=== PATIENT | female | born 1930 | race Caucasian/White ===

== ENCOUNTER 2018-01-02 16:34 | Inpatient (IN) | payer MEDICARE, BC ==
[~2018-01-02] VITALS: Ht 162.6 cm; Wt 65.0 kg
[~2018-01-02 16:34] MED LIST: ADVA100A INH; ALBU17I INH; ASCO500T PO; CALTTAB2 PO; CHOL400D2 PO; ENAL5TAB98 PO; FISH1000 PO; LATA.005%O EACH EYE; MISCCAP32 PO; MULT1TAB84 PO; PRAV40TA PO; PRIL20CA9 PO; SENN1TAB PO; SENN1TAB11 PO; ZOLO50TA PO
[2018-01-02 16:59] VITALS: BP 157/89; PULSE 92; RESP 18; TEMP 98.4; O2SAT 95
[2018-01-02 17:19] LABS: AUTOMATED NEUTROPHIL # 14.8 TH/MM3 (1.8-7.7); BASOPHIL # 0.1 TH/MM3 (0-0.2); BASOPHIL % 0.5 % (0.0-2.0); EOSINOPHIL # 0.1 TH/MM3 (0-0.4); EOSINOPHIL % 0.6 % (0.0-4.0); HEMATOCRIT 31.9 % (35.0-46.0); HEMOGLOBIN 10.6 GM/DL (11.6-15.3); LYMPH % 5.6 % (9.0-44.0); LYMPHOCYTE # 0.9 TH/MM3 (1.0-4.8); MEAN CELL VOLUME 86.7 FL (80.0-100.0); MEAN CORPUSCULAR HEMOGLOBIN 28.8 PG (27.0-34.0); MEAN CORPUSCULAR HGB CONC 33.2 % (32.0-36.0); MEAN PLATELET VOLUME 6.4 FL (7.0-11.0); MONO % 4.1 % (0.0-8.0); MONOCYTE # 0.7 TH/MM3 (0-0.9); NEUT % 89.2 % (16.0-70.0); PLATELET COUNT 589 TH/MM3 (150-450); RED BLOOD COUNT 3.68 MIL/MM3 (4.00-5.30); RED CELL DISTRIBUTION WIDTH 13.8 % (11.6-17.2); WHITE BLOOD COUNT 16.6 TH/MM3 (4.0-11.0)
[2018-01-02 17:49] LABS: INTERNATIONAL NORMALIZED RATIO 1.1 RATIO; PROTHROMBIN TIME - PATIENT 11.4 SEC (9.8-11.6)
[2018-01-02] MEDS ORDERED: VENTAER INH (17:54)
[2018-01-02 18:08] LABS: ALKALINE PHOSPHATASE 80 U/L (45-117); ALT (GPT) 28 U/L (10-53); TOTAL BILIRUBIN ADULT 0.3 MG/DL (0.2-1.0); TOTAL PROTEIN 7.4 GM/DL (6.4-8.2); TROPONIN I LESS THAN 0.02 NG/ML (0.02-0.05)
[2018-01-02 18:11] LABS: ALBUMIN 3.2 GM/DL (3.4-5.0); AST (GOT) 35 U/L (15-37); BICARBONATE 23.6 MEQ/L (21.0-32.0); BLOOD UREA NITROGEN 12 MG/DL (7-18); CALCIUM 9.3 MG/DL (8.5-10.1); CHLORIDE 92 MEQ/L (98-107); CREATININE 0.72 MG/DL (0.50-1.00); GLOMERULAR FILTRATION RATE 76 ML/MIN (>89); GLUCOSE,RANDOM 100 MG/DL (74-106); MAGNESIUM 1.9 MG/DL (1.5-2.5); SODIUM (NA) 126 MEQ/L (136-145)
--- NOTE | 2018-01-02 18:13 | PD ---
HPI Chief Complaint: Fall Time Seen by Provider: 16:53 Travel History International Travel<30 days: No Contact w/Intl Traveler<30days: No Traveled to known affect area: No History of Present Illness HPI 87-year-old female that presents to the ED for evaluation of fall. Patient had a mechanical fall today where she landed on her right side. She landed on her right hip and right elbow. She complained of pain to these areas. Per patient report that was given patient apparently got herself back up and drove herself home. When she got home she realized that she could not move anymore on her right hip and cannot put any weight so she called the ambulance. She denies any prior injuries. She denies any back or neck pain. She states having some chest discomfort when I went into the room. Per ambulance this chest discomfort just started by going to the room as she did not complain of this before. She states that she was recently diagnosed with pneumonia has been treated for it. She denies any head injury loss of consciousness. She denies any blood thinners. No previous injuries or surgeries to her right hip. She states having some pain on her right elbow as well as a skin tear to her right elbow. Has allergies to acetaminophen, Keflex, morphine and OxyContin. Pain with any moment or touch of the right hip. Denies any numbness, tingling, weakness. No urinary or bowel movement issues. Per patient the pain is 8 out of 10. PFSH Past Medical History Arthritis: Yes Asthma: No Blood Disorders: No Anxiety: No Depression: Yes Heart Rhythm Problems: No Cancer: No Cardiovascular Problems: Yes High Cholesterol: Yes Chemotherapy: No Chest Pain: No COPD: Yes Cerebrovascular Accident: No Diabetes: No Diminished Hearing: No Endocrine: No Gastrointestinal Disorders: Yes GERD: Yes Glaucoma: Yes Genitourinary: No Headaches: No Hepatitis: No Hiatal Hernia: Yes Heparin Induced Thrombocytopen: No Hypertension: Yes Immune Disorder: No Implanted Vascular Access Dvce: Yes Kidney Stones: No Medical other: Yes (HX PE) Musculoskeletal: Yes Neurologic: No Psychiatric: Yes Reproductive: No Respiratory: Yes Migraines: No Myocardial Infarction: No Radiation Therapy: No Renal Failure: No Seizures: No Sleep Apnea: No Thyroid Disease: No Ulcer: No ?: Not Menopausal: Yes Past Surgical History AICD: No Appendectomy: Yes Arteriovenous Shunt: No Cardiac Surgery: No Cholecystectomy: No Ear Surgery: No Endocrine Surgery: No Eye Surgery: Yes (kathleen cataract surgery) Genitourinary Surgery: No Gynecologic Surgery: No Insulin Pump: No Joint Replacement: Yes (partial right shoulder replacement) Neurologic Surgery: No Oral Surgery: No Pacemaker: No Thoracic Surgery: Yes (left lower lobectomy) Other Surgery: Yes Social History Alcohol Use: No Tobacco Use: No Substance Use: No Allergies-Medications (Allergen,Severity, Reaction): Coded Allergies: cephalexin (Unverified Allergy, Severe, Rash, 05/05/17) morphine (Unverified Allergy, Severe, sees things , itching , 05/05/17) Reported Meds & Prescriptions Reported Meds & Active Scripts Active Reported Ventolin Hfa 18 GM Inh (Albuterol Sulfate) 90 Mcg/Act Aer 2 Puff INH Q4-6H PRN Ascorbic Acid 500 Mg Tab 500 Mg PO DAILY Vitamin D (Cholecalciferol) 400 Unit/Ml Drops 400 Units PO DAILY Senna Plus 8.6-50 mg (Sennosides-Docusate Sodium) 1 Tab Tab 2 Tab PO DAILY Vasotec (Enalapril Maleate) 5 Mg Tab 5 Mg PO DAILY Advair Diskus Inh (Fluticasone-Salmeterol Inh) 100-50 Mcg/Blist Aer 1 Puff INH BID Rinse mouth after use. Xalatan Opth Drops (Latanoprost) 0.005% Drops 1 Drop EACH EYE HS Fish Oil ([place]-3 Fatty Acids) 1,000 Mg Cap PO DAILY Pravachol (Pravastatin) 40 Mg Tab 40 Mg PO DAILY Zoloft (Sertraline HCl) 50 Mg Tab 50 Mg PO DAILY Review of Systems Except as stated in HPI: all other systems reviewed are Neg Physical Exam Narrative GENERAL: SKIN: Warm and dry. HEAD: Atraumatic. Normocephalic. EYES: Pupils equal and round. No scleral icterus. No injection or drainage. ENT: No nasal bleeding or discharge. Mucous membranes pink and moist. Tongue is midline. No uvula deviation. NECK: Trachea midline. No JVD. CARDIOVASCULAR: Regular rate and rhythm. No murmurs, S3, S4. RESPIRATORY: No accessory muscle use. Clear to auscultation. Breath sounds equal bilaterally. GASTROINTESTINAL: Abdomen soft, non-tender, nondistended. Hepatic and splenic margins not palpable. MUSCULOSKELETAL: Extremities without clubbing, cyanosis, or edema. No obvious deformities. Full range of motion of the upper and lower extremities bilaterally. 2+ pulses bilaterally. Pain with range of motion of the right hip as well as with touch in the right hip. No obvious lumbar, thoracic, cervical spine tenderness to palpation. She does have some reversible pain on the lower aspect of the pelvic area on the right side. Full range of motion of the right elbow but has some skin tears noted as well as bruising noted. Full range of motion of the elbow. . Sensation intact bilaterally. NEUROLOGICAL: Awake and alert. No obvious cranial nerve deficits. Motor grossly within normal limits. Five out of 5 muscle strength in the arms and legs. Normal speech. PSYCHIATRIC: Appropriate mood and affect; insight and judgment normal. Data Data Last Documented VS Vital Signs Date Time Temp Pulse Resp B/P (MAP) Pulse Ox O2 Delivery O2 Flow Rate FiO2 01/02/18 16:59 98.4 92 18 157/89 (111) 95 Room Air Orders Orders Electrocardiogram (01/02/18 16:50) Complete Blood Count With Diff (01/02/18 16:50) Comprehensive Metabolic Panel (01/02/18 16:50) Ckmb (Isoenzyme) Profile (01/02/18 16:50) Troponin I (01/02/18 16:50) Prothrombin Time / Inr (Pt) (01/02/18 16:50) Act Partial Throm Time (Ptt) (01/02/18 16:50) Lipase (01/02/18 16:50) Magnesium (Mg) (01/02/18 16:50) Chest, Single Ap (01/02/18 16:50) Iv Access Insert/Monitor (01/02/18 16:50) Ecg Monitoring (01/02/18 16:50) Hip, Uni(Ap&Lat) W Ap Pelvis (01/02/18 16:50) Ct Lumb Spine W/O Contrast (01/02/18 16:50) Elbow, Complete (4 Vws) (01/02/18 ) CKMB (01/02/18 17:07) CKMB% (01/02/18 17:07) Ct Pelvis W/O Iv Contrast (01/02/18 ) Ketorolac Inj (Toradol Inj) (01/02/18 19:15) Levofloxacin 500 Mg Premix Inj (Levaquin (01/02/18 19:15) Admit Order (Ed Use Only) (01/02/18 20:00) Labs Laboratory Tests Test 01/02/18 17:07 White Blood Count 16.6 TH/MM3 Red Blood Count 3.68 MIL/MM3 Hemoglobin 10.6 GM/DL Hematocrit 31.9 % Mean Corpuscular Volume 86.7 FL Mean Corpuscular Hemoglobin 28.8 PG Mean Corpuscular Hemoglobin Concent 33.2 % Red Cell Distribution Width 13.8 % Platelet Count 589 TH/MM3 Mean Platelet Volume 6.4 FL Neutrophils (%) (Auto) 89.2 % Lymphocytes (%) (Auto) 5.6 % Monocytes (%) (Auto) 4.1 % Eosinophils (%) (Auto) 0.6 % Basophils (%) (Auto) 0.5 % Neutrophils # (Auto) 14.8 TH/MM3 Lymphocytes # (Auto) 0.9 TH/MM3 Monocytes # (Auto) 0.7 TH/MM3 Eosinophils # (Auto) 0.1 TH/MM3 Basophils # (Auto) 0.1 TH/MM3 CBC Comment AUTO DIFF Differential Comment AUTO DIFF CONFIRMED Toxic Granulation 1+ Platelet Estimate HIGH Platelet Morphology Comment NORMAL Prothrombin Time 11.4 SEC Prothromb Time International Ratio 1.1 RATIO Activated Partial Thromboplast Time 30.3 SEC Blood Urea Nitrogen 12 MG/DL Creatinine 0.72 MG/DL Random Glucose 100 MG/DL Total Protein 7.4 GM/DL Albumin 3.2 GM/DL Calcium Level 9.3 MG/DL Magnesium Level 1.9 MG/DL Alkaline Phosphatase 80 U/L Aspartate Amino Transf (AST/SGOT) 35 U/L Alanine Aminotransferase (ALT/SGPT) 28 U/L Total Bilirubin 0.3 MG/DL Sodium Level 126 MEQ/L Potassium Level 4.4 MEQ/L Chloride Level 92 MEQ/L Carbon Dioxide Level 23.6 MEQ/L Anion Gap 10 MEQ/L Estimat Glomerular Filtration Rate 76 ML/MIN Total Creatine Kinase 162 U/L Creatine Kinase MB 3.4 NG/ML Troponin I LESS THAN 0.02 NG/ML Lipase 142 U/L MDM Medical Decision Making Medical Screen Exam Complete: Yes Emergency Medical Condition: Yes Medical Record Reviewed: Yes Interpretation(s) CBC & BMP Diagram 01/02/18 17:07 Total Protein 7.4, Albumin 3.2 L, Calcium Level 9.3, Magnesium Level 1.9, Alkaline Phosphatase 80, Aspartate Amino Transf (AST/SGOT) 35, Alanine Aminotransferase (ALT/SGPT) 28, Total Bilirubin 0.3 [address] Lumbar Spine CT 01/02/180 Signed Impressions: Service Date/Time: Tuesday, January 02, 2018 18:16 - CONCLUSION: The lumbar spine is intact. Scoliosis and severe degenerative changes are present. There is a nondisplaced acute fracture of the left side of the sacrum. Ousmane Vaughn MD Hip and Pelvis X-Ray 01/02/18 1650 Signed Impressions: Service Date/Time: Tuesday, January 02, 2018 17:56 - CONCLUSION: Nondisplaced right pubic bone fracture. Intact right hip. Ousmane Vaughn MD Chest X-Ray 01/02/18 1650 Signed Impressions: Service Date/Time: Tuesday, January 02, 2018 17:59 - CONCLUSION: Patchy bilateral airspace consolidation. No perceptible acute bony abnormality. Ousmane Vaughn MD Pelvis CT 01/02/18 0000 Signed Impressions: Service Date/Time: Tuesday, January 02, 2018 18:40 - CONCLUSION: Minimally displaced fractures of the right superior and inferior pubic rami. The superior pubic ramus fracture is close to the pubic symphysis but not convincingly through it. There is also a nondisplaced fracture of the left side of the sacrum. Ousmane Vaughn MD Elbow X-Ray 01/02/18 0000 Signed Impressions: Service Date/Time: Tuesday, January 02, 2018 18:04 - CONCLUSION: Intact right elbow. Ousmane Vaughn MD Differential Diagnosis Fracture versus sprain versus strain versus bruise versus contusion versus chest pain versus ACS versus fall Narrative Course 87-year-old female that presents to the ED for evaluation of fall. Patient was properly examined and was found to have signs and symptoms concerning for possible fractures. Imaging and labs ordered. Imaging and labs showed pubic rami and sacrum fractures. Pneumonia as well with leukocytosis. Patient lives alone and not a safe discharge. Spoke with Dr Herrera who agrees patient is non surgical but will need walker and possibly physical therapy. Discussed with patient and family and recommend admission for further eval and treatment. patient agrees. Discussed with Dr Roberts who agrees to admission. Diagnosis Primary Impression: Pubic ramus fracture Qualified Codes: S32.591A - Other specified fracture of right pubis, initial encounter for closed fracture Additional Impression: PNA (pneumonia) Qualified Codes: J18.1 - Lobar pneumonia, unspecified organism Admitting Information Admitting Physician Requests: Admit Boris Wynn Jan 02, 2018 18:13
--- NOTE | 2018-01-02 18:25 | RADRPT ---
EXAM DATE/TIME: 01/02/2018 17:59 [facility] COMPARISON: No previous studies available for comparison. INDICATIONS : Patient complains of bilateral rib pain status post fall. MEDICAL HISTORY : None. SURGICAL HISTORY : None. ENCOUNTER: Initial ACUITY: 1 day PAIN SCORE: 4/10 LOCATION: chest FINDINGS: Patchy nonspecific airspace opacities are seen in both lungs, especially left mid lung and base. No p leural effusion demonstrated. No pneumothorax seen. Heart size within normal limits. No acute fracture demonstrated. There are congenital or old traumatic deformities of the right first and second ribs. Patient has had previous right shoulder arthroplasty as well. CONCLUSION: Patchy bilateral airspace consolidation. No perceptible acute bony abnormality. Ousmane Vaughn MD on January 02, 2018 at 18:22 Board Certified Radiologist. This report was verified electronically.
--- NOTE | 2018-01-02 18:35 | RADRPT ---
EXAM DATE/TIME: 01/02/2018 17:56 [facility] COMPARISON: No previous studies available for comparison. INDICATIONS : Patient complains of right hip pain status post fall. MEDICAL HISTORY : None. SURGICAL HISTORY : None. ENCOUNTER: Initial ACUITY: 1 day PAIN SCORE: 9/10 LOCATION: Right Hip FINDINGS: There is a nondisplaced fracture of the midportion of the right inferior pubic ramus. The right hip i s intact and normally aligned. CONCLUSION: Nondisplaced right pubic bone fracture. Intact right hip. Ousmane Vaughn MD on January 02, 2018 at 18:32 Board Certified Radiologist. This report was verified electronically.
--- NOTE | 2018-01-02 18:38 | RADRPT ---
EXAM DATE/TIME: 01/02/2018 18:04 [facility] COMPARISON: No previous studies available for comparison. INDICATIONS : Patient complains of right elbow pain and laceration to right elbow status post fall. MEDICAL HISTORY : None. SURGICAL HISTORY : None. ENCOUNTER: Initial ACUITY: 1 day PAIN SCORE: 6/10 LOCATION: Right Elbow FINDINGS: Multiple view examination of the right elbow demonstrates no soft tissue swelling, joint effusion, or fracture. The osseous structures are in normal alignment. Bony mineralization is normal. CONCLUSION: Intact right elbow. Ousmane Vaughn MD on January 02, 2018 at 18:36 Board Certified Radiologist. This report was verified electronically.
--- NOTE | 2018-01-02 18:54 | RADRPT ---
EXAM DATE/TIME: 01/02/2018 18:16 [facility] COMPARISON: No previous studies available for comparison. INDICATIONS : Trauma. Fall. RADIATION DOSE: 17.95 CTDIvol (mGy) MEDICAL HISTORY : Cardiovascular disease. Hypertension. Gastroesophageal reflux disease.Hiatal hernia SURGICAL HISTORY : Lobectomy. Appendectomy. ENCOUNTER: Initial ACUITY: 1 day PAIN SCALE: 10/10 LOCATION: low back TECHNIQUE: Volumetric scanning of the lumbar spine was performed. Multiplanar reconstructions in the sagittal, coronal and oblique axial planes were performed. Using automated exposure control and adjustment of the mA and/or kV according to patient size, radiation dose was kept as low as reasonably achievable t o obtain optimal diagnostic quality images. DICOM format image data is available electronically for review and comparison. FINDINGS: There is moderate dextroconvex curvature of the lumbar spine centered around L2/L3. No fracture or pollock bluxation of the lumbar spine but there is a nondisplaced fracture of the left sacral ala. Vertebral bodies have normal height. There is mild disc space narrowing at L3/L4. There is moderate to severe disc space narrowing with va cuum phenomena and broad posterior disc protrusions at all of the other levels. 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 Patchy air space opacities are seen of both visualized lung bases. There is a small pleural effusion on the left. CONCLUSION: The lumbar spine is intact. Scoliosis and severe degenerative changes are present. There is a nondisp laced acute fracture of the left side of the sacrum. Ousmane Vaughn MD on January 02, 2018 at 18:47 Board Certified Radiologist. This report was verified electronically.
--- NOTE | 2018-01-02 19:04 | RADRPT ---
EXAM DATE/TIME: 01/02/2018 18:40 [facility] COMPARISON: No previous studies available for comparison. INDICATIONS : Trauma. Fall. ORAL CONTRAST: No oral contrast ingested. RADIATION DOSE: 6.95 CTDIvol (mGy) MEDICAL HISTORY : Cardiovascular disease. Hypertension. Gastroesophageal reflux disease.Hiatal hernia SURGICAL HISTORY : Lobectomy. Appendectomy. ENCOUNTER: Initial ACUITY: 1 day PAIN SCALE: 10/10 LOCATION: pelvis TECHNIQUE: Volumetric scanning of the pelvis was performed. Using automated exposure control and adjustment of the mA and/or kV according to patient size, radiation dose was kept as low as reasonably achievable t o obtain optimal diagnostic quality images. DICOM format image data is available electronically for review and comparison. FINDINGS: There is a slightly displaced fracture midportion of the right inferior pubic ramus. There is a nondi splaced fracture of the right superior pubic ramus adjacent to the pubic symphysis. The rest of the bony pelvis is intact. A minimally displaced fracture is seen of the anterolateral co rner of the left sacrum, intra-articular at the left sacroiliac joint but without associated step-off or incongruity. Bilateral hips are intact. CONCLUSION: Minimally displaced fractures of the right superior and inferior pubic rami. The superior pubic ramus fracture is close to the pubic symphysis but not convincingly through it. There is also a nondisplac ed fracture of the left side of the sacrum. Ousmane Vaughn MD on January 02, 2018 at 19:00 Board Certified Radiologist. This report was verified electronically.
[2018-01-02] MEDS ORDERED: LEVOFLOXACIN 500 MG PREMIX INJ 100 ML IV ONE (19:15)
[2018-01-02] MEDS ORDERED: KETOROLAC TROMETHAMINE 30 MG/ML (IVP) VIAL IV PUSH ONE (19:15)
[2018-01-02 19:17] LABS: TOXIC GRANULATION 1+ (NORMAL)
--- NOTE | 2018-01-02 20:06 | HHI.HP ---
HPI Service [facility] ([place], [place])ists Primary Care Physician Marck Cardenas MD Admission Diagnosis acute pubis ramis fracture, sacrum fracture, pneumonia Diagnoses: (1) Fall Diagnosis: Principal (2) Pubic ramus fracture Diagnosis: Principal (3) PNA (pneumonia) Diagnosis: Principal (4) Hyponatremia Diagnosis: Principal Travel History International Travel<30 Days: No Contact w/Intl Traveler <30 Da: No Traveled to Known Affected Are: No History of Present Illness This is an 87-year-old female with a PMH of HTN, Depression and COPD was brought to the ER by EMS secondary to complaints of right hip and right elbow pain after fall. Denies head trauma or LOC. No other injuries reported. Does report some SOB, states recently diagnosed w/ PNA for which she has been on Keflex. Denies fever, chills, cough or chest pain. On arrival, BP 157/89, HR 92, O2 sat 95% RA, Afebrile. WBC 16.6. Chemistry unremarkable except for Na 126. INR 1.1. CXR with patchy bilateral airspace consolidation. Hip/Pelvis X- ray nondisplaced right pubic bone fracture, intact right hip. CT L-spine intact , nondisplaced acute fracture of left side of sacrum. Elbow Fracture intact right elbow. Pelvis CT minimally displaced fractures of right superior and inferior pubic rami, nondisplaced fracture of left side of sacrum. Ortho consulted by ER physician, non-operative management. S/p Levaquin in ER for PNA. Review of Systems Except as stated in HPI: all other systems reviewed are Neg ROS: 14 point review of systems otherwise negative. Past Family Social History Past Medical History PMH: HTN, Depression and COPD Past Surgical History PAST SURGICAL HISTORY: Appendectomy, Bilateral Cataract Surgery, Right Shoulder Replacement, Left Lung Lobectomy Allergies: Coded Allergies: acetaminophen (Unverified Allergy, Severe, RASH, 05/05/17) cephalexin (Unverified Allergy, Severe, Rash, 05/05/17) morphine (Unverified Allergy, Severe, sees things , itching , 05/05/17) oxycodone (Unverified Allergy, Severe, RASH, 05/05/17) Family History PAST FAMILY HISTORY: Reviewed. No h/o DM or CAD Social History PAST SOCIAL HISTORY: Negative for alcohol, tobacco or drugs Physical Exam Vital Signs Vital Signs Date Time Temp Pulse Resp B/P (MAP) Pulse Ox O2 Delivery O2 Flow Rate FiO2 01/02/18 16:59 98.4 92 18 157/89 (111) 95 Room Air 01/02/18 16:59 97 18 97 Room Air Physical Exam PE: GENERAL: Very pleasant elderly white female in no acute distress. HEENT: PERRLA, EOMI. No scleral icterus or conjunctival pallor. No lid lag or facial droop. CARDIOVASCULAR: Regular rate and rhythm. No obvious murmurs to auscultation. No chest tenderness to palpation. RESPIRATORY: No obvious rhonchi or wheezing. Clear to auscultation. Breath sounds equal bilaterally. GASTROINTESTINAL: Abdomen soft, non-tender, nondistended. BS normal. MUSCULOSKELETAL: Extremities without clubbing, cyanosis, or edema. No obvious deformities. Decreased ROM of right hip due to pain. Pulses intact. NEUROLOGICAL: Awake, alert and oriented x4. No focal neurologic deficits. Moving both upper and lower extremities spontaneously. Laboratory Laboratory Tests Test 01/02/18 17:07 White Blood Count 16.6 Red Blood Count 3.68 Hemoglobin 10.6 Hematocrit 31.9 Mean Corpuscular Volume 86.7 Mean Corpuscular Hemoglobin 28.8 Mean Corpuscular Hemoglobin Concent 33.2 Red Cell Distribution Width 13.8 Platelet Count 589 Mean Platelet Volume 6.4 Neutrophils (%) (Auto) 89.2 Lymphocytes (%) (Auto) 5.6 Monocytes (%) (Auto) 4.1 Eosinophils (%) (Auto) 0.6 Basophils (%) (Auto) 0.5 Neutrophils # (Auto) 14.8 Lymphocytes # (Auto) 0.9 Monocytes # (Auto) 0.7 Eosinophils # (Auto) 0.1 Basophils # (Auto) 0.1 CBC Comment AUTO DIFF Differential Comment AUTO DIFF CONFIRMED Toxic Granulation 1+ Platelet Estimate HIGH Platelet Morphology Comment NORMAL Prothrombin Time 11.4 Prothromb Time International Ratio 1.1 Activated Partial Thromboplast Time 30.3 Blood Urea Nitrogen 12 Creatinine 0.72 Random Glucose 100 Total Protein 7.4 Albumin 3.2 Calcium Level 9.3 Magnesium Level 1.9 Alkaline Phosphatase 80 Aspartate Amino Transf (AST/SGOT) 35 Alanine Aminotransferase (ALT/SGPT) 28 Total Bilirubin 0.3 Sodium Level 126 Potassium Level 4.4 Chloride Level 92 Carbon Dioxide Level 23.6 Anion Gap 10 Estimat Glomerular Filtration Rate 76 Total Creatine Kinase 162 Creatine Kinase MB 3.4 Troponin I LESS THAN 0.02 Lipase 142 Result Diagram: 01/02/18170601/02/181706 Caprini VTE Risk Assessment Caprini VTE Risk Assessment: No/Low Risk (score <= 1) Caprini Risk Assessment Model Point Value = 1 Point Value = 2 Point Value = 3 Point Value = 5 Age 41-60 Minor surgery BMI > 25 kg/m2 Swollen legs Varicose veins or History of unexplained or recurrent spontaneous Oral contraceptives or hormone replacement Sepsis (< 1 month) Serious lung disease, including pneumonia (< 1 month) Abnormal pulmonary function Acute myocardial infarction Congestive heart failure (< 1 month) History of inflammatory bowel disease Medical patient at bed rest Age 61-74 Arthroscopic surgery Major open surgery (> 45 min) Laparoscopic surgery (> 45 min) Malignancy Confined to bed (> 72 hours) Immobilizing plaster cast Central venous access Age >= 75 History of VTE Family history of VTE Factor V Leiden Prothrombin [id number] Lupus anticoagulant Anticardiolipin antibodies Elevated serum homocysteine Heparin-induced thrombocytopenia Other congenital or acquired thrombophilia Stroke (< 1 month) Elective arthroplasty Hip, pelvis, or leg fracture Acute spinal cord injury (< 1 month) Prophylaxis Regimen Total Risk Factor Score Risk Level Prophylaxis Regimen 0-1 Low Early ambulation 2 Moderate Order ONE of the following: *Sequential Compression Device (SCD) *Heparin 5000 units SQ BID 3-4 Higher Order ONE of the following medications: *Heparin 5000 units SQ TID *Enoxaparin/Lovenox 40 mg SQ daily (WT < 150 kg, CrCl > 30 mL/min) *Enoxaparin/Lovenox 30 mg SQ daily (WT < 150 kg, CrCl > 10-29 mL/min) *Enoxaparin/Lovenox 30 mg SQ BID (WT < 150 kg, CrCl > 30 mL/min) AND/OR *Sequential Compression Device (SCD) 5 or more Highest Order ONE of the following medications: *Heparin 5000 units SQ TID (Preferred with Epidurals) *Enoxaparin/Lovenox 40 mg SQ daily (WT < 150 kg, CrCl > 30 mL/min) *Enoxaparin/Lovenox 30 mg SQ daily (WT < 150 kg, CrCl > 10-29 mL/min) *Enoxaparin/Lovenox 30 mg SQ BID (WT < 150 kg, CrCl > 30 mL/min) AND *Sequential Compression Device (SCD) Assessment and Plan Problem List: (1) Fall ICD Code: W19.XXXA - Unspecified fall, initial encounter (2) Pubic ramus fracture ICD Code: S32.599A - Other specified fracture of unspecified pubis, initial encounter for closed fracture (3) PNA (pneumonia) ICD Code: J18.9 - Pneumonia, unspecified organism (4) Hyponatremia ICD Code: E87.1 - Hypo-osmolality and hyponatremia Assessment and Plan A/P: 1. Fall: s/p mechanical fall, no head trauma or LOC reported. 2. Pubic Ramus/Sacrum Fx: secondary to fall, Hip/Pelvis X-ray w/ nondisplaced right pubic bone fracture, intact hip. CT L-Spine w/ nondisplaced acute fracture of left sacrum, images reviewed by me. Ortho consulted, non-operative management. Will consult PT for eval/tx. Analgesics/antiemetics as needed. 3. PNA: CXR w/ bilateral infiltrates, recently diagnosed w/ PNA for which she has been on Keflex, failed outpatient tx. S/p Levaquin IV, will continue w/ IV Abx, DuoNeb prn. 4. Hyponatremia: Na 126, likely secondary to dehydration. IVF, repeat labs in am. 5. DVT Prophylaxis: SCD/Teds 6. Social work for d/c planning as needed. 7. Case discussed w/ ER physician at length, labs/records/imaging reviewed by me. Physician Certification 2 Midnight Certification Type: Admission for Inpatient Services Order for Inpatient Services The services are ordered in accordance with Medicare regulations or non- Medicare payer requirements, as applicable. In the case of services not specified as inpatient-only, they are appropriately provided as inpatient services in accordance with the 2-midnight benchmark. Estimated LOS (days): 2 days is the estimated time the patient will need to remain in the hospital, assuming treatment plan goals are met and no additional complications. Post-Hospital Plan: Not yet determined Nicole Xie MD Jan 02, 2018 20:06
[2018-01-02] MEDS ORDERED: MAGNESIUM HYDROXIDE SUSP 30 ML CUP PO PRN (20:15)
[2018-01-02] MEDS ORDERED: LACTULOSE SYRUP 20 GM/30 ML CUP PO PRN (20:15)
[2018-01-02] MEDS ORDERED: BISACODYL 10 MG SUPP RECTAL PRN (20:15)
[2018-01-02] MEDS ORDERED: SODIUM CHLORIDE 0.9% FLUSH 10 ML FLUSH IV FLUSH PRN (20:15)
[2018-01-02] MEDS ORDERED: SENNOSIDES 8.6 MG TAB PO PRN (20:15)
[2018-01-02] MEDS ORDERED: ALBUTEROL SULFATE 90 MCG/ACT HFA 8 GM INHALER INH PRN (20:15)
[2018-01-02] MEDS ORDERED: ONDANSETRON HCL 4 MG/2 ML VIAL IVP PRN (20:15)
[2018-01-02] MEDS ORDERED: HYDROmorphone HCL PF 1 MG/ML VIAL IV PUSH PRN (20:15)
[2018-01-02 21:15] VITALS: BP 151/72; PULSE 90; RESP 18; TEMP 97.6; O2SAT 98
[2018-01-02] MEDS: DOCUSATE SODIUM 50 MG/SENNA 8.6 MG TAB PO SCH (21:27)
[2018-01-02] MEDS: BUDESONIDE-FORMOTEROL 80/4.5 MCG INHALER INH SCH (21:27)
[2018-01-02] MEDS: LATANOPROST 0.005% OPHT SOLN 2.5 ML BTL EACH EYE SCH (21:27)
[2018-01-02] MEDS: SODIUM CHLORIDE 0.9% FLUSH 10 ML FLUSH IV FLUSH SCH (21:28)
[2018-01-02] MEDS: HYDROmorphone HCL PF 0.5 MG/0.5 ML SYRINGE IV PUSH PRN (22:14)
[2018-01-02] MEDS ORDERED: PANTOPRAZOLE SOD 20 MG DELAYED RELEASE TAB PO ONE (22:45)
[2018-01-02 23:10] VITALS: BP 154/65; PULSE 78; RESP 16; TEMP 97.5; O2SAT 93
[2018-01-03] MEDS: HYDROmorphone HCL PF 0.5 MG/0.5 ML SYRINGE IV PUSH PRN ×4 (02:04→22:11)
[2018-01-03 04:10] VITALS: BP 170/90; PULSE 83; RESP 17; TEMP 97.8; O2SAT 93
[2018-01-03] MEDS ORDERED: cloNIDine HCL 0.1 MG TAB PO ONE (05:30)
[2018-01-03 05:51] LABS: ALBUMIN 2.9 GM/DL (3.4-5.0); AST (GOT) 29 U/L (15-37); BICARBONATE 26.9 MEQ/L (21.0-32.0); BLOOD UREA NITROGEN 14 MG/DL (7-18); CALCIUM 9.4 MG/DL (8.5-10.1); CHLORIDE 92 MEQ/L (98-107); CREATININE 0.82 MG/DL (0.50-1.00); GLOMERULAR FILTRATION RATE 66 ML/MIN (>89); GLUCOSE,RANDOM 107 MG/DL (74-106); SODIUM (NA) 127 MEQ/L (136-145)
[2018-01-03 05:52] LABS: ALT (GPT) 25 U/L (10-53)
[2018-01-03 05:54] LABS: ALKALINE PHOSPHATASE 84 U/L (45-117); TOTAL BILIRUBIN ADULT 0.4 MG/DL (0.2-1.0)
[2018-01-03 05:58] LABS: AUTOMATED NEUTROPHIL # 9.3 TH/MM3 (1.8-7.7); BASOPHIL % 0.2 % (0.0-2.0); EOSINOPHIL # 0.1 TH/MM3 (0-0.4); EOSINOPHIL % 0.9 % (0.0-4.0); HEMATOCRIT 33.9 % (35.0-46.0); HEMOGLOBIN 11.4 GM/DL (11.6-15.3); LYMPH % 9.2 % (9.0-44.0); MEAN CELL VOLUME 85.8 FL (80.0-100.0); MEAN CORPUSCULAR HGB CONC 33.8 % (32.0-36.0); MEAN PLATELET VOLUME 6.8 FL (7.0-11.0); MONO % 5.3 % (0.0-8.0); MONOCYTE # 0.6 TH/MM3 (0-0.9); NEUT % 84.4 % (16.0-70.0); PLATELET COUNT 531 TH/MM3 (150-450); RED BLOOD COUNT 3.95 MIL/MM3 (4.00-5.30); RED CELL DISTRIBUTION WIDTH 13.8 % (11.6-17.2)
[2018-01-03 08:00] VITALS: BP 170/78; PULSE 83; RESP 18; TEMP 97.4; O2SAT 94
[2018-01-03] MEDS: BUDESONIDE-FORMOTEROL 80/4.5 MCG INHALER INH SCH ×2 (08:01→19:39)
[2018-01-03] MEDS: HEPARIN SODIUM - SQ 10,000 UNITS/ML VIAL SQ SCH ×2 (08:02→19:38)
[2018-01-03] MEDS: ASCORBIC ACID 500 MG TAB PO SCH (08:03)
[2018-01-03] MEDS: SERTRALINE HCL 50 MG TAB PO SCH (08:03)
[2018-01-03] MEDS: ENALAPRIL MALEATE 5 MG TAB PO SCH (08:03)
[2018-01-03] MEDS: DOCUSATE SODIUM 50 MG/SENNA 8.6 MG TAB PO SCH ×2 (08:03→19:38)
[2018-01-03] MEDS: SODIUM CHLORIDE 0.9% FLUSH 10 ML FLUSH IV FLUSH SCH ×2 (08:03→19:40)
[2018-01-03] MEDS: PRAVASTATIN SOD 40 MG TAB PO SCH (08:03)
[2018-01-03] MEDS: CHOLECALCIFEROL (VIT D3) LIQ 400 UNITS/ML 50 ML BOTTLE PO SCH (08:38)
--- NOTE | 2018-01-03 09:25 | PD.ORT.PN ---
Subjective Subjective Remarks Patient resting comfortably. Pain well controlled Objective Vitals Vital Signs Date Time Temp Pulse Resp B/P (MAP) Pulse Ox O2 Delivery O2 Flow Rate FiO2 01/03/18 08:00 97.4 83 18 170/78 (108) 94 01/03/18 04:10 97.8 83 17 170/90 (116) 93 01/02/18 23:10 97.5 78 16 154/65 (94) 93 01/02/18 21:15 97.6 90 18 151/72 (98) 98 01/02/18 16:59 98.4 92 18 157/89 (111) 95 Room Air 01/02/18 16:59 97 18 97 Room Air I/O 01/02/18 01/02/18 01/02/18 01/03/18 01/03/18 01/03/18 07:00 15:00 23:00 07:00 15:00 23:00 Intake Total 360 ml Balance 360 ml Intake Oral 360 ml # Voids 1 # Bowel Movements 0 Result Diagram: 01/03/18 0502 01/03/18 0502 Other Results Laboratory Tests Test 01/02/18 17:07 Prothromb Time International Ratio 1.1 RATIO Prothrombin Time 11.4 SEC (9.8-11.6) Imaging Last 24 hours Impressions Lum[address] Spine CT 01/02/181649 Signed Impressions: Service Date/Time: Tuesday, January 02, 2018 18:16 - CONCLUSION: The lumbar spine is intact. Scoliosis and severe degenerative changes are present. There is a nondisplaced acute fracture of the left side of the sacrum. Ousmane Vaughn MD Hip and Pelvis X-Ray 01/02/181649 Signed Impressions: Service Date/Time: Tuesday, January 02, 2018 17:56 - CONCLUSION: Nondisplaced right pubic bone fracture. Intact right hip. Ousmane Vaughn MD Chest X-Ray 01/02/181649 Signed Impressions: Service Date/Time: Tuesday, January 02, 2018 17:59 - CONCLUSION: Patchy bilateral airspace consolidation. No perceptible acute bony abnormality. Ousmane Vaughn MD Assessment & Plan Assessment and Plan At this time, patient does have right pubic rami and left sacral ala fracture. Patient has specifically requested Dr. Stephens. I discussed with the patient that I am more than happy to manage her pelvis fractures however she is adamant that she would like Dr. Avalos to manage this. From my standpoint, this is not an urgent or emergent issue and therefore could wait for Dr. Stephens should he be willing to manage this. Patient can be mobilized out of bed and can be weightbearing as tolerated to the right lower extremity and partial weightbearing 50% to the left lower extremity. Nicki Herrera MD Jan 03, 2018 09:24
[2018-01-03 10:25] LABS: BILIRUBIN, URINE NEG (NEG); BLOOD, URINE NEG (NEG); GLUCOSE,URINE NEG (NEG); HYALINE CAST, URINE 7 /lpf (RARE); KETONE, URINE NEG (NEG); MUCUS URINE FEW /lpf (OCC); NITRITE,URINE NEG (NEG); PH, URINE 6.5 (5.0-8.5); RENAL EPITHELIAL CELLS <1 /hpf; SQUAMOUS EPITHELIAL CELL URINE <1 /hpf (0-5); URINE COLOR YELLOW (YELLW/STRAW); URINE LEUKOCYTE ESTERASE NEG (NEG)
--- NOTE | 2018-01-03 10:27 | HHI.PR ---
Subjective Remarks This is an 87-year-old female with a PMH of HTN, Depression and COPD was brought to the ER by EMS secondary to complaints of right hip and right elbow pain after fall. Denies head trauma or LOC. No other injuries reported. Does report some SOB, states recently diagnosed w/ PNA for which she has been on Keflex. Denies fever, chills, cough or chest pain. On arrival, BP 157/89, HR 92, O2 sat 95% RA, Afebrile. WBC 16.6. Chemistry unremarkable except for Na 126. INR 1.1. CXR with patchy bilateral airspace consolidation. Hip/Pelvis X- ray nondisplaced right pubic bone fracture, intact right hip. CT L-spine intact , nondisplaced acute fracture of left side of sacrum. Elbow Fracture intact right elbow. Pelvis CT minimally displaced fractures of right superior and inferior pubic rami, nondisplaced fracture of left side of sacrum. Ortho consulted by ER physician, non-operative management. S/p Levaquin in ER for PNA. 01-03 patient has decreased range of motion to the right lower extremity. We will make sure she is on some Mucinex and some incentive spirometry and duo nebs continue physical therapy and Occupational Therapy in a.m. labs Objective Vitals Vital Signs Date Time Temp Pulse Resp B/P (MAP) Pulse Ox O2 Delivery O2 Flow Rate FiO2 01/03/18 09:09 17 01/03/18 08:00 97.4 83 18 170/78 (108) 94 01/03/18 04:10 97.8 83 17 170/90 (116) 93 01/02/18 23:10 97.5 78 16 154/65 (94) 93 01/02/18 21:15 97.6 90 18 151/72 (98) 98 01/02/18 16:59 98.4 92 18 157/89 (111) 95 Room Air 01/02/18 16:59 97 18 97 Room Air I/O 01/02/18 01/02/18 01/02/18 01/03/18 01/03/18 01/03/18 07:00 15:00 23:00 07:00 15:00 23:00 Intake Total 360 ml Balance 360 ml Intake Oral 360 ml # Voids 1 # Bowel Movements 0 Result Diagram: 01/03/18 0502 01/03/18 0502 Other Results Laboratory Tests Test 01/02/18 17:07 01/03/18 05:02 01/03/18 09:57 White Blood Count 16.6 TH/MM3 11.0 TH/MM3 Red Blood Count 3.68 MIL/MM3 3.95 MIL/MM3 Hemoglobin 10.6 GM/DL 11.4 GM/DL Hematocrit 31.9 % 33.9 % Mean Corpuscular Volume 86.7 FL 85.8 FL Mean Corpuscular Hemoglobin 28.8 PG 29.0 PG Mean Corpuscular Hemoglobin Concent 33.2 % 33.8 % Red Cell Distribution Width 13.8 % 13.8 % Platelet Count 589 TH/MM3 531 TH/MM3 Mean Platelet Volume 6.4 FL 6.8 FL Neutrophils (%) (Auto) 89.2 % 84.4 % Lymphocytes (%) (Auto) 5.6 % 9.2 % Monocytes (%) (Auto) 4.1 % 5.3 % Eosinophils (%) (Auto) 0.6 % 0.9 % Basophils (%) (Auto) 0.5 % 0.2 % Neutrophils # (Auto) 14.8 TH/MM3 9.3 TH/MM3 Lymphocytes # (Auto) 0.9 TH/MM3 1.0 TH/MM3 Monocytes # (Auto) 0.7 TH/MM3 0.6 TH/MM3 Eosinophils # (Auto) 0.1 TH/MM3 0.1 TH/MM3 Basophils # (Auto) 0.1 TH/MM3 0.0 TH/MM3 CBC Comment AUTO DIFF DIFF FINAL Differential Comment AUTO DIFF CONFIRMED Toxic Granulation 1+ Platelet Estimate HIGH Platelet Morphology Comment NORMAL Prothrombin Time 11.4 SEC Prothromb Time International Ratio 1.1 RATIO Activated Partial Thromboplast Time 30.3 SEC Blood Urea Nitrogen 12 MG/DL 14 MG/DL Creatinine 0.72 MG/DL 0.82 MG/DL Random Glucose 100 MG/DL 107 MG/DL Total Protein 7.4 GM/DL 7.0 GM/DL Albumin 3.2 GM/DL 2.9 GM/DL Calcium Level 9.3 MG/DL 9.4 MG/DL Magnesium Level 1.9 MG/DL Alkaline Phosphatase 80 U/L 84 U/L Aspartate Amino Transf (AST/SGOT) 35 U/L 29 U/L Alanine Aminotransferase (ALT/SGPT) 28 U/L 25 U/L Total Bilirubin 0.3 MG/DL 0.4 MG/DL Sodium Level 126 MEQ/L 127 MEQ/L Potassium Level 4.4 MEQ/L 4.1 MEQ/L Chloride Level 92 MEQ/L 92 MEQ/L Carbon Dioxide Level 23.6 MEQ/L 26.9 MEQ/L Anion Gap 10 MEQ/L 8 MEQ/L Estimat Glomerular Filtration Rate 76 ML/MIN 66 ML/MIN Total Creatine Kinase 162 U/L Creatine Kinase MB 3.4 NG/ML Troponin I LESS THAN 0.02 NG/ML Lipase 142 U/L Imaging Last Impressions Lumbar Spine CT 01/02/180 Signed Impressions: Service Date/Time: Tuesday, January 02, 2018 18:16 - CONCLUSION: The lumbar spine is intact. Scoliosis and severe degenerative changes are present. There is a nondisplaced acute fracture of the left side of the sacrum. Ousmane Vaughn MD Hip and Pelvis X-Ray 01/02/18 1650 Signed Impressions: Service Date/Time: Tuesday, January 02, 2018 17:56 - CONCLUSION: Nondisplaced right pubic bone fracture. Intact right hip. Ousmane Vaughn MD Chest X-Ray 01/02/180 Signed Impressions: Service Date/Time: Tuesday, January 02, 2018 17:59 - CONCLUSION: Patchy bilateral airspace consolidation. No perceptible acute bony abnormality. Ousmane Vaughn MD Pelvis CT 01/02/18 0000 Signed Impressions: Service Date/Time: Tuesday, January 02, 2018 18:40 - CONCLUSION: Minimally displaced fractures of the right superior and inferior pubic rami. The superior pubic ramus fracture is close to the pubic symphysis but not convincingly through it. There is also a nondisplaced fracture of the left side of the sacrum. Ousmane Vaughn MD Elbow X-Ray 01/02/18 0000 Signed Impressions: Service Date/Time: Tuesday, January 02, 2018 18:04 - CONCLUSION: Intact right elbow. Ousmane Vaughn MD Objective Remarks GENERAL: Awake alert and oriented 3 talkative and cooperative, thin appearing female SKIN: Warm and dry. HEAD: Atraumatic. Normocephalic. EYES: Pupils equal and round. No scleral icterus. No injection or drainage. Extraocular muscles intact ENT: No nasal bleeding or discharge. Mucous membranes pink and moist. Tongue is midline NECK: Trachea midline. No JVD. Supple CARDIOVASCULAR: Regular rate and rhythm. S1-S2 no S3-S4 no heave or thrill or rub or gallop RESPIRATORY: No accessory muscle use. Clear to auscultation. Breath sounds equal bilaterally. GASTROINTESTINAL: Abdomen soft, non-tender, nondistended. Hepatic and splenic margins not palpable. MUSCULOSKELETAL: Extremities without clubbing, cyanosis, or edema. No obvious deformities. NEUROLOGICAL: Awake and alert. No obvious cranial nerve deficits. Motor grossly within normal limits. 4 out of 5 muscle strength in the arms and legs. Normal speech.Decreased ROM of right hip due to pain. Pulses intact. PSYCHIATRIC: Appropriate mood and affect; insight and judgment normal. Medications and IVs Current Medications Ketorolac Tromethamine (Toradol Inj) 30 mg ONCE ONCE IV PUSH Last administered on 01/02/18at 19:27; Start 01/02/18 at 19:15; Stop 01/02/18 at 19:16 ; Status DC Levofloxacin/ Dextrose 100 ml @ 100 mls/hr ONCE ONCE IV Last administered on 01/02/18at 19:27; Start 01/02/18 at 19:15; Stop 01/02/18 at 20:14; Status DC Levofloxacin/ Dextrose 150 ml @ 100 mls/hr Q24H IV ; Start 01/03/18 at 21:00 Sodium Chloride (NS Flush) 2 ml UNSCH PRN IV FLUSH FLUSH AFTER USING IV ACCESS ; Start 01/02/18 at 20:15 Sodium Chloride (NS Flush) 2 ml BID IV FLUSH Last administered on 01/03/18at 08: 03; Start 01/02/18 at 21:00 Ondansetron HCl (Zofran Inj) 4 mg Q6H PRN IVP NAUSEA OR VOMITING; Start at 20:15 Hydromorphone HCl (Dilaudid Pf Inj) 0.5 mg Q3H PRN IV PUSH Pain 6-10; Start at 20:15; Stop 01/02/18 at 22:07; Status DC Senna/Docusate Sodium (Xiomy-Colace) 1 tab BID PO Last administered on at 08:03; Start 01/02/18 at 21:00 Magnesium Hydroxide (Milk Of Magnesia Liq) 30 ml Q12H PRN PO Mild constipation Last administered on 01/02/18 21:27; Start 01/02/18 at 20:15 Sennosides (Senokot) 17.2 mg Q12H PRN PO Moderate constipation; Start 01/02/18 at 20:15 Bisacodyl (Dulcolax Supp) 10 mg DAILY PRN RECTAL SEVERE CONSITIPATION; Start at 20:15 Lactulose (Lactulose Liq) 30 ml DAILY PRN PO SEVERE CONSITIPATION; Start at 20:15 Heparin Sodium (Porcine) (Heparin Inj) 5,000 units Q12HR SQ Last administered on 01/03/18at 08:02; Start 01/03/18 at 09:00 Albuterol Sulfate (Proair Hfa Inh) 2 puff Q4H PRN INH SHORTNESS OF BREATH; Start 01/02/18 at 20:15 Ascorbic Acid (Vitamin C) 500 mg DAILY PO Last administered on 01/03/18at 08:03 ; Start 01/03/18 at 09:00 Cholecalciferol (Vitamin D Liq) 400 units DAILY PO Last administered on at 08:38; Start 01/03/18 at 09:00 Enalapril Maleate (Vasotec) 5 mg DAILY PO Last administered on 01/03/18 08:03 ; Start 01/03/18 at 09:00 Latanoprost (Xalatan 0.005% Opt Soln) 1 drop HS EACH EYE Last administered on 01/02/18at 21:27; Start 01/02/18 at 21:00 Pravastatin Sodium (Pravachol) 40 mg DAILY PO Last administered on 01/03/18at 08 :03; Start 01/03/18 at 09:00 Sertraline HCl (Zoloft) 50 mg DAILY PO Last administered on 01/03/18at 08:03; Start 01/03/18 at 09:00 Budesonide/ Formoterol Fumarate (Symbicort 80-4.5 Mcg Inh) 2 puff BID INH Last administered on 01/03/18at 08:01; Start 01/02/18 at 21:00 Hydromorphone HCl (Dilaudid Pf Inj) 0.5 mg Q3H PRN IV PUSH Pain 6-10 Last administered on 01/03/18at 08:39; Start 01/02/18 at 22:15 Pantoprazole Sodium (Protonix) 20 mg ONCE ONCE PO Last administered on at 22:37; Start 01/02/18 at 22:45; Stop 01/02/18 at 22:46; Status DC Clonidine (Catapres) 0.1 mg ONCE ONCE PO Last administered on 01/03/18at 05:46 ; Start 01/03/18 at 05:30; Stop 01/03/18 at 05:33; Status DC A/P Problem List: (1) Fall ICD Code: W19.XXXA - Unspecified fall, initial encounter (2) Pubic ramus fracture ICD Code: S32.599A - Other specified fracture of unspecified pubis, initial encounter for closed fracture (3) PNA (pneumonia) ICD Code: J18.9 - Pneumonia, unspecified organism (4) Hyponatremia ICD Code: E87.1 - Hypo-osmolality and hyponatremia Assessment and Plan 1. Fall: s/p mechanical fall, no head trauma or LOC reported. 2. Pubic Ramus/Sacrum Fx: secondary to fall, Hip/Pelvis X-ray w/ nondisplaced right pubic bone fracture, intact hip. CT L-Spine w/ nondisplaced acute fracture of left sacrum, images reviewed by me. Ortho consulted, non-operative management. Will consult PT for eval/tx. Analgesics/antiemetics as needed. 3. PNA: CXR w/ bilateral infiltrates, recently diagnosed w/ PNA for which she has been on Keflex, failed outpatient tx. S/p Levaquin IV, will continue w/ IV Abx, DuoNeb prn. Mucinex incentive spirometry 4. Hyponatremia: Na 126, likely secondary to dehydration. IVF, repeat labs in am. 5. DVT Prophylaxis: SCD/Teds Discharge Planning Pending physical therapy and occupational therapy evaluation and clearance by Austen Clayton DO Jan 03, 2018 10:27
[2018-01-03] MEDS ORDERED: LACTULOSE SYRUP 20 GM/30 ML CUP PO PRN (10:30)
[2018-01-03] MEDS ORDERED: NALOXONE HCL 0.4 MG/ML AMP IV PUSH PRN (10:30)
[2018-01-03] MEDS ORDERED: SODIUM CHLORIDE 0.9% FLUSH 10 ML FLUSH IV FLUSH PRN (10:30)
[2018-01-03] MEDS ORDERED: BISACODYL 10 MG SUPP RECTAL PRN (10:30)
[2018-01-03] MEDS ORDERED: HYDROmorphone HCL PF 2 MG/ML VIAL IV PUSH PRN (10:30)
[2018-01-03] MEDS ORDERED: SENNOSIDES 8.6 MG TAB PO PRN (10:30)
[2018-01-03] MEDS ORDERED: METOCLOPRAMIDE HCL 10 MG/2 ML VIAL IV PUSH PRN ×2 (10:30→12:30)
[2018-01-03] MEDS ORDERED: RESP: ALBUTEROL 2.5 MG/IPRATROPIUM 0.5 MG NEB (PRN) NEB (10:45)
[2018-01-03] MEDS ORDERED: cloNIDine HCL 0.1 MG TAB PO PRN (10:45)
[2018-01-03] MEDS: ONDANSETRON HCL 4 MG/2 ML VIAL IVP PRN (11:55)
[2018-01-03] MEDS: guaiFENesin E.R. 600 MG TAB PO SCH ×2 (11:56→19:38)
[2018-01-03 12:00] VITALS: BP 135/80; PULSE 81; RESP 18; TEMP 97.3; O2SAT 94
[2018-01-03] MEDS: RESP: ALBUTEROL 2.5 MG/IPRATROPIUM 0.5 MG NEB (SCH) NEB ×2 (12:49→19:48)
--- NOTE | 2018-01-03 14:24 | EKG ---
Date Performed: 01/02/2018 Time Performed: 17:04:47 PTAGE: 87 years EKG: Sinus rhythm WITH OCCASIONAL SUPRAVENTRICULAR PREMATURE COMPLEXES ANTEROSEPTAL MYOCARDIAL INFARCTION ABNORMAL ECG Since PREVIOUS TRACING , no significant change noted PREVIOUS TRACIN01/21/2011 11.45 DOCTOR: Jennifer Parker Interpretating Date/Time 01/03/2018 14:23:20
[2018-01-03 16:00] VITALS: BP 136/79; PULSE 76; RESP 18; TEMP 98.4; O2SAT 93
[2018-01-03] MEDS: MAGNESIUM HYDROXIDE SUSP 30 ML CUP PO PRN (19:38)
[2018-01-03] MEDS: LEVOFLOXACIN 750 MG PREMIX INJ 150 ML IV SCH (19:39)
[2018-01-03] MEDS: LATANOPROST 0.005% OPHT SOLN 2.5 ML BTL EACH EYE SCH (19:39)
[2018-01-03 19:45] VITALS: BP 120/59; PULSE 78; RESP 16; TEMP 97.9; O2SAT 93
[2018-01-03 23:45] VITALS: BP 162/90; PULSE 85; RESP 17; TEMP 97.8; O2SAT 92
[2018-01-04] MEDS: HYDROmorphone HCL PF 0.5 MG/0.5 ML SYRINGE IV PUSH PRN (02:11)
[2018-01-04 04:55] VITALS: BP 133/60; PULSE 83; RESP 17; TEMP 97.7; O2SAT 92
[2018-01-04 08:00] VITALS: BP 148/65; PULSE 90; RESP 16; TEMP 98.4; O2SAT 92
[2018-01-04] MEDS: guaiFENesin E.R. 600 MG TAB PO SCH ×2 (08:37→20:18)
[2018-01-04] MEDS: ASCORBIC ACID 500 MG TAB PO SCH (08:37)
[2018-01-04] MEDS: PRAVASTATIN SOD 40 MG TAB PO SCH (08:37)
[2018-01-04] MEDS: DOCUSATE SODIUM 50 MG/SENNA 8.6 MG TAB PO SCH ×2 (08:37→20:18)
[2018-01-04] MEDS: ENALAPRIL MALEATE 5 MG TAB PO SCH (08:37)
[2018-01-04] MEDS: SERTRALINE HCL 50 MG TAB PO SCH (08:37)
[2018-01-04] MEDS: HEPARIN SODIUM - SQ 10,000 UNITS/ML VIAL SQ SCH ×2 (08:38→20:19)
[2018-01-04] MEDS: SODIUM CHLORIDE 0.9% FLUSH 10 ML FLUSH IV FLUSH SCH ×2 (08:38→20:25)
[2018-01-04] MEDS: BUDESONIDE-FORMOTEROL 80/4.5 MCG INHALER INH SCH ×2 (08:38→20:24)
[2018-01-04] MEDS: RESP: ALBUTEROL 2.5 MG/IPRATROPIUM 0.5 MG NEB (SCH) NEB ×3 (08:41→19:27)
[2018-01-04 08:59] LABS: AUTOMATED NEUTROPHIL # 9.7 TH/MM3 (1.8-7.7); BASOPHIL # 0.1 TH/MM3 (0-0.2); BASOPHIL % 0.4 % (0.0-2.0); EOSINOPHIL # 0.2 TH/MM3 (0-0.4); EOSINOPHIL % 1.4 % (0.0-4.0); HEMATOCRIT 32.6 % (35.0-46.0); HEMOGLOBIN 11.1 GM/DL (11.6-15.3); LYMPH % 7.2 % (9.0-44.0); LYMPHOCYTE # 0.8 TH/MM3 (1.0-4.8); MEAN CELL VOLUME 86.8 FL (80.0-100.0); MEAN CORPUSCULAR HEMOGLOBIN 29.5 PG (27.0-34.0); MEAN PLATELET VOLUME 6.7 FL (7.0-11.0); MONOCYTE # 0.8 TH/MM3 (0-0.9); PLATELET COUNT 522 TH/MM3 (150-450); RED BLOOD COUNT 3.76 MIL/MM3 (4.00-5.30); WHITE BLOOD COUNT 11.5 TH/MM3 (4.0-11.0)
[2018-01-04] MEDS: CHOLECALCIFEROL (VIT D3) LIQ 400 UNITS/ML 50 ML BOTTLE PO SCH (09:00)
[2018-01-04 09:21] LABS: ALBUMIN 2.7 GM/DL (3.4-5.0); AST (GOT) 25 U/L (15-37); BICARBONATE 28.7 MEQ/L (21.0-32.0); BLOOD UREA NITROGEN 18 MG/DL (7-18); CALCIUM 9.4 MG/DL (8.5-10.1); CHLORIDE 89 MEQ/L (98-107); CREATININE 0.87 MG/DL (0.50-1.00); GLOMERULAR FILTRATION RATE 61 ML/MIN (>89); GLUCOSE,RANDOM 101 MG/DL (74-106); MAGNESIUM 2.4 MG/DL (1.5-2.5); SODIUM (NA) 125 MEQ/L (136-145)
[2018-01-04 09:29] LABS: ALKALINE PHOSPHATASE 79 U/L (45-117); ALT (GPT) 22 U/L (10-53); FREE T4 1.43 NG/DL (0.76-1.46); PHOSPHORUS 3.4 MG/DL (2.5-4.9); TOTAL BILIRUBIN ADULT 0.4 MG/DL (0.2-1.0); TOTAL PROTEIN 6.8 GM/DL (6.4-8.2)
--- NOTE | 2018-01-04 09:43 | HHI.PR ---
Subjective Remarks This is an 87-year-old female with a PMH of HTN, Depression and COPD was brought to the ER by EMS secondary to complaints of right hip and right elbow pain after fall. Denies head trauma or LOC. No other injuries reported. Does report some SOB, states recently diagnosed w/ PNA for which she has been on Keflex. Denies fever, chills, cough or chest pain. On arrival, BP 157/89, HR 92, O2 sat 95% RA, Afebrile. WBC 16.6. Chemistry unremarkable except for Na 126. INR 1.1. CXR with patchy bilateral airspace consolidation. Hip/Pelvis X- ray nondisplaced right pubic bone fracture, intact right hip. CT L-spine intact , nondisplaced acute fracture of left side of sacrum. Elbow Fracture intact right elbow. Pelvis CT minimally displaced fractures of right superior and inferior pubic rami, nondisplaced fracture of left side of sacrum. Ortho consulted by ER physician, non-operative management. S/p Levaquin in ER for PNA. 01-03 patient has decreased range of motion to the right lower extremity. We will make sure she is on some Mucinex and some incentive spirometry and duo nebs continue physical therapy and Occupational Therapy in a.m. labs -16 AWAIT PT AND OT EVALS MAY NEED SNF VS [facility]UL[facility] RN AND PT AM LABS Objective Vitals Vital Signs Date Time Temp Pulse Resp B/P (MAP) Pulse Ox O2 Delivery O2 Flow Rate FiO2 01/04/18 08:00 98.4 90 16 148/65 (92) 92 01/04/18 07:34 Room Air 01/04/18 04:55 97.7 83 17 133/60 (84) 92 01/03/18 23:45 97.8 85 17 162/90 (114) 92 01/03/18 19:45 97.9 78 16 120/59 (79) 93 01/03/18 16:00 98.4 76 18 136/79 (98) 93 01/03/18 12:57 17 01/03/18 12:00 97.3 81 18 135/80 (98) 94 I/O 01/03/18 01/03/18 01/03/18 01/04/18 01/04/18 01/04/18 07:00 15:00 23:00 07:00 15:00 23:00 Intake Total 360 ml 150 ml 360 ml Output Total 500 ml Balance 360 ml -350 ml 360 ml Intake Oral 360 ml 360 ml IV Total 150 ml Output Urine Total 500 ml # Voids 1 1 1 # Bowel Movements 0 0 Result Diagram: 01/04/18 0810 01/04/18 0830 Other Results Laboratory Tests Test 01/02/18 17:07 01/03/18 05:02 01/03/18 09:57 01/04/18 08:10 White Blood Count 16.6 TH/MM3 11.0 TH/MM3 11.5 TH/MM3 Red Blood Count 3.68 MIL/MM3 3.95 MIL/MM3 3.76 MIL/MM3 Hemoglobin 10.6 GM/DL 11.4 GM/DL 11.1 GM/DL Hematocrit 31.9 % 33.9 % 32.6 % Mean Corpuscular Volume 86.7 FL 85.8 FL 86.8 FL Mean Corpuscular Hemoglobin 28.8 PG 29.0 PG 29.5 PG Mean Corpuscular Hemoglobin Concent 33.2 % 33.8 % 34.0 % Red Cell Distribution Width 13.8 % 13.8 % 14.0 % Platelet Count 589 TH/MM3 531 TH/MM3 522 TH/MM3 Mean Platelet Volume 6.4 FL 6.8 FL 6.7 FL Neutrophils (%) (Auto) 89.2 % 84.4 % 84.0 % Lymphocytes (%) (Auto) 5.6 % 9.2 % 7.2 % Monocytes (%) (Auto) 4.1 % 5.3 % 7.0 % Eosinophils (%) (Auto) 0.6 % 0.9 % 1.4 % Basophils (%) (Auto) 0.5 % 0.2 % 0.4 % Neutrophils # (Auto) 14.8 TH/MM3 9.3 TH/MM3 9.7 TH/MM3 Lymphocytes # (Auto) 0.9 TH/MM3 1.0 TH/MM3 0.8 TH/MM3 Monocytes # (Auto) 0.7 TH/MM3 0.6 TH/MM3 0.8 TH/MM3 Eosinophils # (Auto) 0.1 TH/MM3 0.1 TH/MM3 0.2 TH/MM3 Basophils # (Auto) 0.1 TH/MM3 0.0 TH/MM3 0.1 TH/MM3 CBC Comment AUTO DIFF DIFF FINAL DIFF FINAL Differential Comment AUTO DIFF CONFIRMED Toxic Granulation 1+ Platelet Estimate HIGH Platelet Morphology Comment NORMAL Prothrombin Time 11.4 SEC Prothromb Time International Ratio 1.1 RATIO Activated Partial Thromboplast Time 30.3 SEC Blood Urea Nitrogen 12 MG/DL 14 MG/DL Creatinine 0.72 MG/DL 0.82 MG/DL Random Glucose 100 MG/DL 107 MG/DL Total Protein 7.4 GM/DL 7.0 GM/DL Albumin 3.2 GM/DL 2.9 GM/DL Calcium Level 9.3 MG/DL 9.4 MG/DL Magnesium Level 1.9 MG/DL Alkaline Phosphatase 80 U/L 84 U/L Aspartate Amino Transf (AST/SGOT) 35 U/L 29 U/L Alanine Aminotransferase (ALT/SGPT) 28 U/L 25 U/L Total Bilirubin 0.3 MG/DL 0.4 MG/DL Sodium Level 126 MEQ/L 127 MEQ/L Potassium Level 4.4 MEQ/L 4.1 MEQ/L Chloride Level 92 MEQ/L 92 MEQ/L Carbon Dioxide Level 23.6 MEQ/L 26.9 MEQ/L Anion Gap 10 MEQ/L 8 MEQ/L Estimat Glomerular Filtration Rate 76 ML/MIN 66 ML/MIN Total Creatine Kinase 162 U/L Creatine Kinase MB 3.4 NG/ML Troponin I LESS THAN 0.02 NG/ML Lipase 142 U/L Urine Color YELLOW Urine Turbidity CLEAR Urine pH 6.5 Urine Specific [place] 1.009 Urine Protein NEG mg/dL Urine Glucose (UA) NEG mg/dL Urine Ketones NEG mg/dL Urine Occult Blood NEG Urine Nitrite NEG Urine Bilirubin NEG Urine Urobilinogen LESS THAN 2.0 MG/DL Urine Leukocyte Esterase NEG Urine RBC 2 /hpf Urine WBC LESS THAN 1 /hpf Urine Squamous Epithelial Cells <1 /hpf Urine Renal Epithelial Cells <1 /hpf Urine Hyaline Casts 7 /lpf Urine Mucus FEW /lpf Microscopic Urinalysis Comment CULT NOT INDICATED Test 01/04/18 08:30 Blood Urea Nitrogen 18 MG/DL Creatinine 0.87 MG/DL Random Glucose 101 MG/DL Total Protein 6.8 GM/DL Albumin 2.7 GM/DL Calcium Level 9.4 MG/DL Phosphorus Level 3.4 MG/DL Magnesium Level 2.4 MG/DL Alkaline Phosphatase 79 U/L Aspartate Amino Transf (AST/SGOT) 25 U/L Alanine Aminotransferase (ALT/SGPT) 22 U/L Total Bilirubin 0.4 MG/DL Sodium Level 125 MEQ/L Potassium Level 4.9 MEQ/L Chloride Level 89 MEQ/L Carbon Dioxide Level 28.7 MEQ/L Anion Gap 7 MEQ/L Estimat Glomerular Filtration Rate 61 ML/MIN Free Thyroxine 1.43 NG/DL Thyroid Stimulating Hormone 3rd Gen 1.780 uIU/ML Imaging Last Impressions Lumbar Spine CT 01/02/18 1650 Signed Impressions: Service Date/Time: Tuesday, January 02, 2018 18:16 - CONCLUSION: The lumbar spine is intact. Scoliosis and severe degenerative changes are present. There is a nondisplaced acute fracture of the left side of the sacrum. Ousmane Vaughn MD Hip and Pelvis X-Ray 01/02/18 1650 Signed Impressions: Service Date/Time: Tuesday, January 02, 2018 17:56 - CONCLUSION: Nondisplaced right pubic bone fracture. Intact right hip. Ousmane Vaughn MD Chest X-Ray 01/02/180 Signed Impressions: Service Date/Time: Tuesday, January 02, 2018 17:59 - CONCLUSION: Patchy bilateral airspace consolidation. No perceptible acute bony abnormality. Ousmane Vaughn MD Pelvis CT 01/02/18 0000 Signed Impressions: Service Date/Time: Tuesday, January 02, 2018 18:40 - CONCLUSION: Minimally displaced fractures of the right superior and inferior pubic rami. The superior pubic ramus fracture is close to the pubic symphysis but not convincingly through it. There is also a nondisplaced fracture of the left side of the sacrum. Ousmane Vaughn MD Elbow X-Ray 01/02/18 0000 Signed Impressions: Service Date/Time: Tuesday, January 02, 2018 18:04 - CONCLUSION: Intact right elbow. Ousmane Vaughn MD Objective Remarks GENERAL: Awake alert and oriented 3 talkative and cooperative, thin appearing female SKIN: Warm and dry. HEAD: Atraumatic. Normocephalic. EYES: Pupils equal and round. No scleral icterus. No injection or drainage. Extraocular muscles intact ENT: No nasal bleeding or discharge. Mucous membranes pink and moist. Tongue is midline NECK: Trachea midline. No JVD. Supple CARDIOVASCULAR: Regular rate and rhythm. S1-S2 no S3-S4 no heave or thrill or rub or gallop RESPIRATORY: No accessory muscle use. Clear to auscultation. Breath sounds equal bilaterally. GASTROINTESTINAL: Abdomen soft, non-tender, nondistended. Hepatic and splenic margins not palpable. MUSCULOSKELETAL: Extremities without clubbing, cyanosis, or edema. No obvious deformities. NEUROLOGICAL: Awake and alert. No obvious cranial nerve deficits. Motor grossly within normal limits. 4 out of 5 muscle strength in the arms and legs. Normal speech.Decreased ROM of right hip due to pain. Pulses intact. PSYCHIATRIC: Appropriate mood and affect; insight and judgment normal. Medications and IVs Current Medications Ketorolac Tromethamine (Toradol Inj) 30 mg ONCE ONCE IV PUSH Last administered on 01/02/18 19:27; Start 01/02/18 at 19:15; Stop 01/02/18 at 19:16 ; Status DC Levofloxacin/ Dextrose 100 ml @ 100 mls/hr ONCE ONCE IV Last administered on 01/02/18at 19:27; Start 01/02/18 at 19:15; Stop 01/02/18 at 20:14; Status DC Levofloxacin/ Dextrose 150 ml @ 100 mls/hr Q24H IV Last administered on at 19:39; Start 01/03/18 at 21:00 Sodium Chloride (NS Flush) 2 ml UNSCH PRN IV FLUSH FLUSH AFTER USING IV ACCESS ; Start 01/02/18 at 20:15; Stop 01/03/18 at 11:12; Status DC Sodium Chloride (NS Flush) 2 ml BID IV FLUSH Last administered on 01/03/18at 08: 03; Start 01/02/18 at 21:00; Stop 01/03/18 at 11:12; Status DC Ondansetron HCl (Zofran Inj) 4 mg Q6H PRN IVP NAUSEA OR VOMITING; Start at 20:15; Stop 01/03/18 at 11:12; Status DC Hydromorphone HCl (Dilaudid Pf Inj) 0.5 mg Q3H PRN IV PUSH Pain 6-10; Start at 20:15; Stop 01/02/18 at 22:07; Status DC Senna/Docusate Sodium (Xiomy-Colace) 1 tab BID PO Last administered on at 08:03; Start 01/02/18 at 21:00; Stop 01/03/18 at 11:12; Status DC Magnesium Hydroxide (Milk Of Magnesia Liq) 30 ml Q12H PRN PO Mild constipation Last administered on 01/02/18at 21:27; Start 01/02/18 at 20:15; Stop 01/03/18 at 11:12; Status DC Sennosides (Senokot) 17.2 mg Q12H PRN PO Moderate constipation; Start 01/02/18 at 20:15; Stop 01/03/18 at 11:12; Status DC Bisacodyl (Dulcolax Supp) 10 mg DAILY PRN RECTAL SEVERE CONSITIPATION; Start at 20:15; Stop 01/03/18 at 11:12; Status DC Lactulose (Lactulose Liq) 30 ml DAILY PRN PO SEVERE CONSITIPATION; Start at 20:15; Stop 01/03/18 at 11:12; Status DC Heparin Sodium (Porcine) (Heparin Inj) 5,000 units Q12HR SQ Last administered on 01/04/18at 08:38; Start 01/03/18 at 09:00 Albuterol Sulfate (Proair Hfa Inh) 2 puff Q4H PRN INH SHORTNESS OF BREATH; Start 01/02/18 at 20:15 Ascorbic Acid (Vitamin C) 500 mg DAILY PO Last administered on 01/04/18at 08:37 ; Start 01/03/18 at 09:00 Cholecalciferol (Vitamin D Liq) 400 units DAILY PO Last administered on 08:38; Start 01/03/18 at 09:00 Enalapril Maleate (Vasotec) 5 mg DAILY PO Last administered on 01/04/18 08:37 ; Start 01/03/18 at 09:00 Latanoprost (Xalatan 0.005% Opt Soln) 1 drop HS EACH EYE Last administered on 01/03/18 19:39; Start 01/02/18 at 21:00 Pravastatin Sodium (Pravachol) 40 mg DAILY PO Last administered on 01/04/18 08 :37; Start 01/03/18 at 09:00 Sertraline HCl (Zoloft) 50 mg DAILY PO Last administered on 01/04/18at 08:37; Start 01/03/18 at 09:00 Budesonide/ Formoterol Fumarate (Symbicort 80-4.5 Mcg Inh) 2 puff BID INH Last administered on 01/04/18at 08:38; Start 01/02/18 at 21:00 Hydromorphone HCl (Dilaudid Pf Inj) 0.5 mg Q3H PRN IV PUSH Pain 6-10 Last administered on 01/04/18 02:11; Start 01/02/18 at 22:15 Pantoprazole Sodium (Protonix) 20 mg ONCE ONCE PO Last administered on 22:37; Start 01/02/18 at 22:45; Stop 01/02/18 at 22:46; Status DC Clonidine (Catapres) 0.1 mg ONCE ONCE PO Last administered on 01/03/18 05:46 ; Start 01/03/18 at 05:30; Stop 01/03/18 at 05:33; Status DC Sodium Chloride (NS Flush) 2 ml UNSCH PRN IV FLUSH FLUSH AFTER USING IV ACCESS ; Start 01/03/18 at 10:30 Sodium Chloride (NS Flush) 2 ml BID IV FLUSH Last administered on 01/04/18 08: 38; Start 01/03/18 at 21:00 Ondansetron HCl (Zofran Inj) 4 mg Q6H PRN IVP NAUSEA OR VOMITING Last administered on 01/03/18at 11:55; Start 01/03/18 at 10:30 Metoclopramide HCl (Reglan Inj) 5 mg Q6H PRN IV PUSH NAUSEA OR VOMITING; Start 01/03/18 at 10:30; Stop 01/03/18 at 11:12; Status DC Oxycodone HCl (Roxicodone) 10 mg Q4H PRN PO PAIN SCALE 6 TO 10 Last administered on 01/04/18 08:38; Start 01/03/18 at 10:30 Hydromorphone HCl (Dilaudid Pf Inj) 1 mg Q3H PRN IV PUSH BREAKTHROUGH PAIN; Start 01/03/18 at 10:30 Oxycodone HCl (Roxicodone) 5 mg Q4H PRN PO PAIN SCALE 3 TO 5 Last administered on 01/04/18at 04:53; Start 01/03/18 at 10:30 Naloxone HCl (Narcan Inj) 0.4 mg UNSCH PRN IV PUSH SEE LABEL COMMENTS; Start at 10:30 Senna/Docusate Sodium (Xiomy-Colace) 1 tab BID PO Last administered on at 08:37; Start 01/03/18 at 21:00 Magnesium Hydroxide (Milk Of Magnesia Liq) 30 ml Q12H PRN PO Mild constipation Last administered on 01/03/18at 19:38; Start 01/03/18 at 10:30 Sennosides (Senokot) 17.2 mg Q12H PRN PO Moderate constipation; Start 01/03/18 at 10:30 Bisacodyl (Dulcolax Supp) 10 mg DAILY PRN RECTAL SEVERE CONSITIPATION; Start at 10:30 Lactulose (Lactulose Liq) 30 ml DAILY PRN PO SEVERE CONSITIPATION; Start at 10:30 Albuterol/ Ipratropium (Duoneb Neb) 1 ampule Q6HR WHILE AWAKE NEB NEB Last administered on 01/04/18at 08:41; Start 01/03/18 at 14:00 Albuterol/ Ipratropium (Duoneb Neb) 1 ampule Q2HR NEB PRN NEB sob/cough; Start 01/03/18 at 10:45 Guaifenesin (Mucinex Er) 600 mg BID PO Last administered on 01/04/18at 08:37; Start 01/03/18 at 10:45 Clonidine (Catapres) 0.1 mg Q4H PRN PO SBP>160, DBP>90 Last administered on at 00:08; Start 01/03/18 at 10:45 Metoclopramide HCl (Reglan Inj) 5 mg Q6H PRN IV PUSH NAUSEA OR VOMITING; Start 01/03/18 at 12:30 A/P Problem List: (1) Fall ICD Code: W19.XXXA - Unspecified fall, initial encounter (2) Pubic ramus fracture ICD Code: S32.599A - Other specified fracture of unspecified pubis, initial encounter for closed fracture (3) PNA (pneumonia) ICD Code: J18.9 - Pneumonia, unspecified organism (4) Hyponatremia ICD Code: E87.1 - Hypo-osmolality and hyponatremia Assessment and Plan 1. Fall: s/p mechanical fall, no head trauma or LOC reported. 2. Pubic Ramus/Sacrum Fx: secondary to fall, Hip/Pelvis X-ray w/ nondisplaced right pubic bone fracture, intact hip. CT L-Spine w/ nondisplaced acute fracture of left sacrum, images reviewed by me. Ortho consulted, non-operative management. Will consult PT for eval/tx. Analgesics/antiemetics as needed. 3. PNA: CXR w/ bilateral infiltrates, recently diagnosed w/ PNA for which she has been on Keflex, failed outpatient tx. S/p Levaquin IV, will continue w/ IV Abx, DuoNeb prn. Mucinex incentive spirometry 4. Hyponatremia: Na 126, likely secondary to dehydration. IVF, repeat labs in am. 5. DVT Prophylaxis: SCD/Teds AWAIT ORTHO Discharge Planning Pending physical therapy and occupational therapy evaluation and clearance by Dr. ferguson Problem Qualifiers (1) Pubic ramus fracture: Qualified Codes: S32.591A - Other specified fracture of right pubis, initial encounter for closed fracture (2) PNA (pneumonia): Qualified Codes: J18.1 - Lobar pneumonia, unspecified organism Austen Diaz DO Jan 04, 2018 09:43
[2018-01-04 12:00] VITALS: BP 90/57; PULSE 86; RESP 16; TEMP 97.5; O2SAT 94
[2018-01-04 16:00] VITALS: BP 116/56; PULSE 77; RESP 16; TEMP 98.3; O2SAT 91
[2018-01-04 19:53] VITALS: BP 134/60; PULSE 87; RESP 18; TEMP 98.1; O2SAT 96
[2018-01-04] MEDS: LEVOFLOXACIN 750 MG PREMIX INJ 150 ML IV SCH (20:17)
[2018-01-04] MEDS: LATANOPROST 0.005% OPHT SOLN 2.5 ML BTL EACH EYE SCH (20:24)
[2018-01-04] MEDS: ONDANSETRON HCL 4 MG/2 ML VIAL IVP PRN (22:05)
[2018-01-04] MEDS ORDERED: BENZOCAINE 6 MG/MENTHOL 10 MG LOZENGE BUCCAL PRN (22:15)
[2018-01-04 23:57] VITALS: BP 124/62; PULSE 76; RESP 16; TEMP 98; O2SAT 97
[2018-01-05 05:11] LABS: AUTOMATED NEUTROPHIL # 7.5 TH/MM3 (1.8-7.7); BASOPHIL % 0.4 % (0.0-2.0); EOSINOPHIL # 0.1 TH/MM3 (0-0.4); EOSINOPHIL % 1.6 % (0.0-4.0); HEMATOCRIT 30.1 % (35.0-46.0); HEMOGLOBIN 10.4 GM/DL (11.6-15.3); LYMPH % 9.5 % (9.0-44.0); LYMPHOCYTE # 0.9 TH/MM3 (1.0-4.8); MEAN CELL VOLUME 86.4 FL (80.0-100.0); MEAN CORPUSCULAR HEMOGLOBIN 29.9 PG (27.0-34.0); MEAN CORPUSCULAR HGB CONC 34.7 % (32.0-36.0); MEAN PLATELET VOLUME 6.7 FL (7.0-11.0); MONO % 8.8 % (0.0-8.0); MONOCYTE # 0.8 TH/MM3 (0-0.9); NEUT % 79.7 % (16.0-70.0); PLATELET COUNT 517 TH/MM3 (150-450); RED BLOOD COUNT 3.49 MIL/MM3 (4.00-5.30); RED CELL DISTRIBUTION WIDTH 14.1 % (11.6-17.2); WHITE BLOOD COUNT 9.4 TH/MM3 (4.0-11.0)
[2018-01-05 05:18] LABS: ALBUMIN 2.6 GM/DL (3.4-5.0); AST (GOT) 22 U/L (15-37); BICARBONATE 29.1 MEQ/L (21.0-32.0); BLOOD UREA NITROGEN 22 MG/DL (7-18); CHLORIDE 90 MEQ/L (98-107); CREATININE 1.11 MG/DL (0.50-1.00); GLOMERULAR FILTRATION RATE 46 ML/MIN (>89); GLUCOSE,RANDOM 108 MG/DL (74-106); MAGNESIUM 2.3 MG/DL (1.5-2.5); SODIUM (NA) 125 MEQ/L (136-145)
[2018-01-05 05:19] LABS: ALT (GPT) 19 U/L (10-53); PHOSPHORUS 4.2 MG/DL (2.5-4.9)
[2018-01-05 05:22] LABS: ALKALINE PHOSPHATASE 73 U/L (45-117); TOTAL BILIRUBIN ADULT 0.4 MG/DL (0.2-1.0); TOTAL PROTEIN 6.4 GM/DL (6.4-8.2)
[2018-01-05 08:00] VITALS: BP 129/55; PULSE 88; RESP 16; TEMP 97.6; O2SAT 91
[2018-01-05] MEDS: SERTRALINE HCL 50 MG TAB PO SCH (08:31)
[2018-01-05] MEDS: ASCORBIC ACID 500 MG TAB PO SCH (08:31)
[2018-01-05] MEDS: guaiFENesin E.R. 600 MG TAB PO SCH (08:31)
[2018-01-05] MEDS: MAGNESIUM HYDROXIDE SUSP 30 ML CUP PO PRN (08:31)
[2018-01-05] MEDS: PRAVASTATIN SOD 40 MG TAB PO SCH (08:31)
[2018-01-05] MEDS: DOCUSATE SODIUM 50 MG/SENNA 8.6 MG TAB PO SCH (08:32)
[2018-01-05] MEDS: BUDESONIDE-FORMOTEROL 80/4.5 MCG INHALER INH SCH (08:32)
[2018-01-05] MEDS: HEPARIN SODIUM - SQ 10,000 UNITS/ML VIAL SQ SCH (08:32)
[2018-01-05] MEDS: SODIUM CHLORIDE 0.9% FLUSH 10 ML FLUSH IV FLUSH SCH (08:32)
[2018-01-05] MEDS: ENALAPRIL MALEATE 5 MG TAB PO SCH (08:32)
[2018-01-05] MEDS: RESP: ALBUTEROL 2.5 MG/IPRATROPIUM 0.5 MG NEB (SCH) NEB ×2 (08:35→13:55)
[2018-01-05] MEDS: CHOLECALCIFEROL (VIT D3) LIQ 400 UNITS/ML 50 ML BOTTLE PO SCH (09:00)
--- NOTE | 2018-01-05 10:57 | HHI.PR ---
Subjective Remarks This is an 87-year-old female with a PMH of HTN, Depression and COPD was brought to the ER by EMS secondary to complaints of right hip and right elbow pain after fall. Denies head trauma or LOC. No other injuries reported. Does report some SOB, states recently diagnosed w/ PNA for which she has been on Keflex. Denies fever, chills, cough or chest pain. On arrival, BP 157/89, HR 92, O2 sat 95% RA, Afebrile. WBC 16.6. Chemistry unremarkable except for Na 126. INR 1.1. CXR with patchy bilateral airspace consolidation. Hip/Pelvis X- ray nondisplaced right pubic bone fracture, intact right hip. CT L-spine intact , nondisplaced acute fracture of left side of sacrum. Elbow Fracture intact right elbow. Pelvis CT minimally displaced fractures of right superior and inferior pubic rami, nondisplaced fracture of left side of sacrum. Ortho consulted by ER physician, non-operative management. S/p Levaquin in ER for PNA. 4-15 patient has decreased range of motion to the right lower extremity. We will make sure she is on some Mucinex and some incentive spirometry and duo nebs continue physical therapy and Occupational Therapy in a.m. labs -16 AWAIT PT AND OT EVALS MAY NEED SNF VS [facility] DW RN AND PT AM LABS -17 WANTS TO GO TO [place] BUT WILL GO TO SNF IF NOT ABLE TO GO TO [place] DW RN AND PT AND FAMILY AND CM NO NEW COMPLAINTS Objective Vitals Vital Signs Date Time Temp Pulse Resp B/P (MAP) Pulse Ox O2 Delivery O2 Flow Rate FiO2 01/05/18 08:00 97.6 88 16 129/55 (79) 91 01/04/18 23:57 98.0 76 16 124/62 (82) 97 01/04/18 19:53 98.1 87 18 134/60 (84) 96 01/04/18 16:00 98.3 77 16 116/56 (76) 91 01/04/18 12:00 97.5 86 16 90/57 (68) 94 I/O 01/04/18 01/04/18 01/04/18 01/05/18 01/05/18 01/05/18 07:00 15:00 23:00 07:00 15:00 23:00 Intake Total 360 ml 240 ml 360 ml Balance 360 ml 240 ml 360 ml Intake Oral 360 ml 240 ml 360 ml # Voids 1 1 1 # Bowel Movements 0 0 0 Result Diagram: 01/05/1843001/05/18 043 Other Results Laboratory Tests Test 01/02/18 17:07 01/03/18 05:02 01/03/18 09:57 01/04/18 08:10 White Blood Count 16.6 TH/MM3 11.0 TH/MM3 11.5 TH/MM3 Red Blood Count 3.68 MIL/MM3 3.95 MIL/MM3 3.76 MIL/MM3 Hemoglobin 10.6 GM/DL 11.4 GM/DL 11.1 GM/DL Hematocrit 31.9 % 33.9 % 32.6 % Mean Corpuscular Volume 86.7 FL 85.8 FL 86.8 FL Mean Corpuscular Hemoglobin 28.8 PG 29.0 PG 29.5 PG Mean Corpuscular Hemoglobin Concent 33.2 % 33.8 % 34.0 % Red Cell Distribution Width 13.8 % 13.8 % 14.0 % Platelet Count 589 TH/MM3 531 TH/MM3 522 TH/MM3 Mean Platelet Volume 6.4 FL 6.8 FL 6.7 FL Neutrophils (%) (Auto) 89.2 % 84.4 % 84.0 % Lymphocytes (%) (Auto) 5.6 % 9.2 % 7.2 % Monocytes (%) (Auto) 4.1 % 5.3 % 7.0 % Eosinophils (%) (Auto) 0.6 % 0.9 % 1.4 % Basophils (%) (Auto) 0.5 % 0.2 % 0.4 % Neutrophils # (Auto) 14.8 TH/MM3 9.3 TH/MM3 9.7 TH/MM3 Lymphocytes # (Auto) 0.9 TH/MM3 1.0 TH/MM3 0.8 TH/MM3 Monocytes # (Auto) 0.7 TH/MM3 0.6 TH/MM3 0.8 TH/MM3 Eosinophils # (Auto) 0.1 TH/MM3 0.1 TH/MM3 0.2 TH/MM3 Basophils # (Auto) 0.1 TH/MM3 0.0 TH/MM3 0.1 TH/MM3 CBC Comment AUTO DIFF DIFF FINAL DIFF FINAL Differential Comment AUTO DIFF CONFIRMED Toxic Granulation 1+ Platelet Estimate HIGH Platelet Morphology Comment NORMAL Prothrombin Time 11.4 SEC Prothromb Time International Ratio 1.1 RATIO Activated Partial Thromboplast Time 30.3 SEC Blood Urea Nitrogen 12 MG/DL 14 MG/DL Creatinine 0.72 MG/DL 0.82 MG/DL Random Glucose 100 MG/DL 107 MG/DL Total Protein 7.4 GM/DL 7.0 GM/DL Albumin 3.2 GM/DL 2.9 GM/DL Calcium Level 9.3 MG/DL 9.4 MG/DL Magnesium Level 1.9 MG/DL Alkaline Phosphatase 80 U/L 84 U/L Aspartate Amino Transf (AST/SGOT) 35 U/L 29 U/L Alanine Aminotransferase (ALT/SGPT) 28 U/L 25 U/L Total Bilirubin 0.3 MG/DL 0.4 MG/DL Sodium Level 126 MEQ/L 127 MEQ/L Potassium Level 4.4 MEQ/L 4.1 MEQ/L Chloride Level 92 MEQ/L 92 MEQ/L Carbon Dioxide Level 23.6 MEQ/L 26.9 MEQ/L Anion Gap 10 MEQ/L 8 MEQ/L Estimat Glomerular Filtration Rate 76 ML/MIN 66 ML/MIN Total Creatine Kinase 162 U/L Creatine Kinase MB 3.4 NG/ML Troponin I LESS THAN 0.02 NG/ML Lipase 142 U/L Urine Color YELLOW Urine Turbidity CLEAR Urine pH 6.5 Urine Specific [place] 1.009 Urine Protein NEG mg/dL Urine Glucose (UA) NEG mg/dL Urine Ketones NEG mg/dL Urine Occult Blood NEG Urine Nitrite NEG Urine Bilirubin NEG Urine Urobilinogen LESS THAN 2.0 MG/DL Urine Leukocyte Esterase NEG Urine RBC 2 /hpf Urine WBC LESS THAN 1 /hpf Urine Squamous Epithelial Cells <1 /hpf Urine Renal Epithelial Cells <1 /hpf Urine Hyaline Casts 7 /lpf Urine Mucus FEW /lpf Microscopic Urinalysis Comment CULT NOT INDICATED Test 01/04/18 08:30 01/05/18 04:31 Blood Urea Nitrogen 18 MG/DL 22 MG/DL Creatinine 0.87 MG/DL 1.11 MG/DL Random Glucose 101 MG/DL 108 MG/DL Total Protein 6.8 GM/DL 6.4 GM/DL Albumin 2.7 GM/DL 2.6 GM/DL Calcium Level 9.4 MG/DL 9.0 MG/DL Phosphorus Level 3.4 MG/DL 4.2 MG/DL Magnesium Level 2.4 MG/DL 2.3 MG/DL Alkaline Phosphatase 79 U/L 73 U/L Aspartate Amino Transf (AST/SGOT) 25 U/L 22 U/L Alanine Aminotransferase (ALT/SGPT) 22 U/L 19 U/L Total Bilirubin 0.4 MG/DL 0.4 MG/DL Sodium Level 125 MEQ/L 125 MEQ/L Potassium Level 4.9 MEQ/L 5.2 MEQ/L Chloride Level 89 MEQ/L 90 MEQ/L Carbon Dioxide Level 28.7 MEQ/L 29.1 MEQ/L Anion Gap 7 MEQ/L 6 MEQ/L Estimat Glomerular Filtration Rate 61 ML/MIN 46 ML/MIN Hemoglobin A1c 6.0 % Free Thyroxine 1.43 NG/DL Thyroid Stimulating Hormone 3rd Gen 1.780 uIU/ML White Blood Count 9.4 TH/MM3 Red Blood Count 3.49 MIL/MM3 Hemoglobin 10.4 GM/DL Hematocrit 30.1 % Mean Corpuscular Volume 86.4 FL Mean Corpuscular Hemoglobin 29.9 PG Mean Corpuscular Hemoglobin Concent 34.7 % Red Cell Distribution Width 14.1 % Platelet Count 517 TH/MM3 Mean Platelet Volume 6.7 FL Neutrophils (%) (Auto) 79.7 % Lymphocytes (%) (Auto) 9.5 % Monocytes (%) (Auto) 8.8 % Eosinophils (%) (Auto) 1.6 % Basophils (%) (Auto) 0.4 % Neutrophils # (Auto) 7.5 TH/MM3 Lymphocytes # (Auto) 0.9 TH/MM3 Monocytes # (Auto) 0.8 TH/MM3 Eosinophils # (Auto) 0.1 TH/MM3 Basophils # (Auto) 0.0 TH/MM3 CBC Comment DIFF FINAL Differential Comment Imaging Last Impressions Lumbar Spine CT 01/02/181649 Signed Impressions: Service Date/Time: Tuesday, January 02, 2018 18:16 - CONCLUSION: The lumbar spine is intact. Scoliosis and severe degenerative changes are present. There is a nondisplaced acute fracture of the left side of the sacrum. Ousmane Vaughn MD Hip and Pelvis X-Ray 01/02/181649 Signed Impressions: Service Date/Time: Tuesday, January 02, 2018 17:56 - CONCLUSION: Nondisplaced right pubic bone fracture. Intact right hip. Ousmane Vaughn MD Chest X-Ray 4/14/18 1650 Signed Impressions: Service Date/Time: Tuesday, January 02, 2018 17:59 - CONCLUSION: Patchy bilateral airspace consolidation. No perceptible acute bony abnormality. Ousmane Vaughn MD Pelvis CT 01/02/18 0000 Signed Impressions: Service Date/Time: Tuesday, January 02, 2018 18:40 - CONCLUSION: Minimally displaced fractures of the right superior and inferior pubic rami. The superior pubic ramus fracture is close to the pubic symphysis but not convincingly through it. There is also a nondisplaced fracture of the left side of the sacrum. Ousmane Vaughn MD Elbow X-Ray 01/02/18 0000 Signed Impressions: Service Date/Time: Tuesday, January 02, 2018 18:04 - CONCLUSION: Intact right elbow. Ousmane Vaughn MD Objective Remarks GENERAL: Awake alert and oriented 3 talkative and cooperative, thin appearing female SKIN: Warm and dry. HEAD: Atraumatic. Normocephalic. EYES: Pupils equal and round. No scleral icterus. No injection or drainage. Extraocular muscles intact ENT: No nasal bleeding or discharge. Mucous membranes pink and moist. Tongue is midline NECK: Trachea midline. No JVD. Supple CARDIOVASCULAR: Regular rate and rhythm. S1-S2 no S3-S4 no heave or thrill or rub or gallop RESPIRATORY: No accessory muscle use. Clear to auscultation. Breath sounds equal bilaterally. GASTROINTESTINAL: Abdomen soft, non-tender, nondistended. Hepatic and splenic margins not palpable. MUSCULOSKELETAL: Extremities without clubbing, cyanosis, or edema. No obvious deformities. NEUROLOGICAL: Awake and alert. No obvious cranial nerve deficits. Motor grossly within normal limits. 4 out of 5 muscle strength in the arms and legs. Normal speech.Decreased ROM of right hip due to pain. Pulses intact. PSYCHIATRIC: Appropriate mood and affect; insight and judgment normal. Medications and IVs Current Medications Ketorolac Tromethamine (Toradol Inj) 30 mg ONCE ONCE IV PUSH Last administered on 01/02/18at 19:27; Start 01/02/18 at 19:15; Stop 01/02/18 at 19:16 ; Status DC Levofloxacin/ Dextrose 100 ml @ 100 mls/hr ONCE ONCE IV Last administered on 01/02/18at 19:27; Start 01/02/18 at 19:15; Stop 01/02/18 at 20:14; Status DC Levofloxacin/ Dextrose 150 ml @ 100 mls/hr Q24H IV Last administered on at 20:17; Start 01/03/18 at 21:00 Sodium Chloride (NS Flush) 2 ml UNSCH PRN IV FLUSH FLUSH AFTER USING IV ACCESS ; Start 01/02/18 at 20:15; Stop 01/03/18 at 11:12; Status DC Sodium Chloride (NS Flush) 2 ml BID IV FLUSH Last administered on 01/03/18at 08: 03; Start 01/02/18 at 21:00; Stop 01/03/18 at 11:12; Status DC Ondansetron HCl (Zofran Inj) 4 mg Q6H PRN IVP NAUSEA OR VOMITING; Start at 20:15; Stop 01/03/18 at 11:12; Status DC Hydromorphone HCl (Dilaudid Pf Inj) 0.5 mg Q3H PRN IV PUSH Pain 6-10; Start at 20:15; Stop 01/02/18 at 22:07; Status DC Senna/Docusate Sodium (Xiomy-Colace) 1 tab BID PO Last administered on at 08:03; Start 01/02/18 at 21:00; Stop 01/03/18 at 11:12; Status DC Magnesium Hydroxide (Milk Of Magnesia Liq) 30 ml Q12H PRN PO Mild constipation Last administered on 01/02/18at 21:27; Start 01/02/18 at 20:15; Stop 01/03/18 at 11:12; Status DC Sennosides (Senokot) 17.2 mg Q12H PRN PO Moderate constipation; Start 01/02/18 at 20:15; Stop 01/03/18 at 11:12; Status DC Bisacodyl (Dulcolax Supp) 10 mg DAILY PRN RECTAL SEVERE CONSITIPATION; Start at 20:15; Stop 01/03/18 at 11:12; Status DC Lactulose (Lactulose Liq) 30 ml DAILY PRN PO SEVERE CONSITIPATION; Start at 20:15; Stop 01/03/18 at 11:12; Status DC Heparin Sodium (Porcine) (Heparin Inj) 5,000 units Q12HR SQ Last administered on 01/05/18 08:32; Start 01/03/18 at 09:00 Albuterol Sulfate (Proair Hfa Inh) 2 puff Q4H PRN INH SHORTNESS OF BREATH; Start 01/02/18 at 20:15 Ascorbic Acid (Vitamin C) 500 mg DAILY PO Last administered on 01/05/18 08:31 ; Start 01/03/18 at 09:00 Cholecalciferol (Vitamin D Liq) 400 units DAILY PO Last administered on 08:38; Start 01/03/18 at 09:00 Enalapril Maleate (Vasotec) 5 mg DAILY PO Last administered on 01/05/18 08:32 ; Start 01/03/18 at 09:00 Latanoprost (Xalatan 0.005% Opt Soln) 1 drop HS EACH EYE Last administered on 01/04/18 20:24; Start 01/02/18 at 21:00 Pravastatin Sodium (Pravachol) 40 mg DAILY PO Last administered on 01/05/18 08 :31; Start 01/03/18 at 09:00 Sertraline HCl (Zoloft) 50 mg DAILY PO Last administered on 01/05/18 08:31; Start 01/03/18 at 09:00 Budesonide/ Formoterol Fumarate (Symbicort 80-4.5 Mcg Inh) 2 puff BID INH Last administered on 01/05/18 08:32; Start 01/02/18 at 21:00 Hydromorphone HCl (Dilaudid Pf Inj) 0.5 mg Q3H PRN IV PUSH Pain 6-10 Last administered on 01/04/18 02:11; Start 01/02/18 at 22:15 Pantoprazole Sodium (Protonix) 20 mg ONCE ONCE PO Last administered on 22:37; Start 01/02/18 at 22:45; Stop 01/02/18 at 22:46; Status DC Clonidine (Catapres) 0.1 mg ONCE ONCE PO Last administered on 01/03/18 05:46 ; Start 01/03/18 at 05:30; Stop 01/03/18 at 05:33; Status DC Sodium Chloride (NS Flush) 2 ml UNSCH PRN IV FLUSH FLUSH AFTER USING IV ACCESS ; Start 01/03/18 at 10:30 Sodium Chloride (NS Flush) 2 ml BID IV FLUSH Last administered on 01/05/18at 08: 32; Start 01/03/18 at 21:00 Ondansetron HCl (Zofran Inj) 4 mg Q6H PRN IVP NAUSEA OR VOMITING Last administered on 01/04/18at 22:05; Start 01/03/18 at 10:30 Metoclopramide HCl (Reglan Inj) 5 mg Q6H PRN IV PUSH NAUSEA OR VOMITING; Start 01/03/18 at 10:30; Stop 01/03/18 at 11:12; Status DC Oxycodone HCl (Roxicodone) 10 mg Q4H PRN PO PAIN SCALE 6 TO 10 Last administered on 01/05/18at 03:45; Start 01/03/18 at 10:30 Hydromorphone HCl (Dilaudid Pf Inj) 1 mg Q3H PRN IV PUSH BREAKTHROUGH PAIN; Start 01/03/18 at 10:30 Oxycodone HCl (Roxicodone) 5 mg Q4H PRN PO PAIN SCALE 3 TO 5 Last administered on 01/05/18at 08:31; Start 01/03/18 at 10:30 Naloxone HCl (Narcan Inj) 0.4 mg UNSCH PRN IV PUSH SEE LABEL COMMENTS; Start at 10:30 Senna/Docusate Sodium (Xiomy-Colace) 1 tab BID PO Last administered on at 08:32; Start 01/03/18 at 21:00 Magnesium Hydroxide (Milk Of Magnesia Liq) 30 ml Q12H PRN PO Mild constipation Last administered on 01/05/18at 08:31; Start 01/03/18 at 10:30 Sennosides (Senokot) 17.2 mg Q12H PRN PO Moderate constipation; Start 01/03/18 at 10:30 Bisacodyl (Dulcolax Supp) 10 mg DAILY PRN RECTAL SEVERE CONSITIPATION; Start at 10:30 Lactulose (Lactulose Liq) 30 ml DAILY PRN PO SEVERE CONSITIPATION; Start at 10:30 Albuterol/ Ipratropium (Duoneb Neb) 1 ampule Q6HR WHILE AWAKE NEB NEB Last administered on 01/05/18at 08:35; Start 01/03/18 at 14:00 Albuterol/ Ipratropium (Duoneb Neb) 1 ampule Q2HR NEB PRN NEB sob/cough; Start 01/03/18 at 10:45 Guaifenesin (Mucinex Er) 600 mg BID PO Last administered on 01/05/18at 08:31; Start 01/03/18 at 10:45 Clonidine (Catapres) 0.1 mg Q4H PRN PO SBP>160, DBP>90 Last administered on at 00:08; Start 01/03/18 at 10:45 Metoclopramide HCl (Reglan Inj) 5 mg Q6H PRN IV PUSH NAUSEA OR VOMITING; Start 01/03/18 at 12:30 Benzocaine/Menthol (Chloraseptic Tenisha) 1 lozenge UNSCH PRN BUCCAL sore throat Last administered on 01/05/18at 01:34; Start 01/04/18 at 22:15 A/P Problem List: (1) Fall ICD Code: W19.XXXA - Unspecified fall, initial encounter (2) Pubic ramus fracture ICD Code: S32.599A - Other specified fracture of unspecified pubis, initial encounter for closed fracture (3) PNA (pneumonia) ICD Code: J18.9 - Pneumonia, unspecified organism (4) Hyponatremia ICD Code: E87.1 - Hypo-osmolality and hyponatremia Assessment and Plan 1. Fall: s/p mechanical fall, no head trauma or LOC reported. 2. Pubic Ramus/Sacrum Fx: secondary to fall, Hip/Pelvis X-ray w/ nondisplaced right pubic bone fracture, intact hip. CT L-Spine w/ nondisplaced acute fracture of left sacrum, images reviewed by me. Ortho consulted, non-operative management. Will consult PT for eval/tx. Analgesics/antiemetics as needed. TO GO TO [facility] 3. PNA: CXR w/ bilateral infiltrates, recently diagnosed w/ PNA for which she has been on Keflex, failed outpatient tx. S/p Levaquin IV, will continue w/ IV Abx, DuoNeb prn. Mucinex incentive spirometry 4. Hyponatremia: Na 126, likely secondary to dehydration. IVF, repeat labs in am. 5. DVT Prophylaxis: SCD/Teds AWAIT ORTHO Discharge Planning Pending physical therapy and occupational therapy evaluation - [facility] [place] VS SNF Problem Qualifiers (1) Pubic ramus fracture: Qualified Codes: S32.591A - Other specified fracture of right pubis, initial encounter for closed fracture (2) PNA (pneumonia): Qualified Codes: J18.1 - Lobar pneumonia, unspecified organism Austen Diaz DO Jan 05, 2018 10:57
[2018-01-05] MEDS ORDERED: LEVA750T9 PO (11:02)
[2018-01-05] MEDS ORDERED: guaiFENesin ER PO (11:02)
[2018-01-05] MEDS ORDERED: Albuterol-Ipratropium Neb NEB ×2 (11:02)
[2018-01-05] MEDS ORDERED: OXYC-392 PO (11:02)
[2018-01-05] MEDS ORDERED: SENN1TAB PO (11:02)
--- NOTE | 2018-01-05 11:08 | HHI.DS ---
Discharge Summary Admission Date Jan 02, 2018 at 20:01 Discharge Date: Jan 05, 2018 Admitting Diagnosis acute pubis ramis fracture, sacrum fracture, pneumonia (1) Fall ICD Code: W19.XXXA - Unspecified fall, initial encounter Diagnosis: Principal (2) Pubic ramus fracture ICD Code: S32.599A - Other specified fracture of unspecified pubis, initial encounter for closed fracture Diagnosis: Principal (3) PNA (pneumonia) ICD Code: J18.9 - Pneumonia, unspecified organism Diagnosis: Principal (4) Hyponatremia ICD Code: E87.1 - Hypo-osmolality and hyponatremia Diagnosis: Secondary Procedures NONE Brief History - From Admission This is an 87-year-old female with a PMH of HTN, Depression and COPD was brought to the ER by EMS secondary to complaints of right hip and right elbow pain after fall. Denies head trauma or LOC. No other injuries reported. Does report some SOB, states recently diagnosed w/ PNA for which she has been on Keflex. Denies fever, chills, cough or chest pain. On arrival, BP 157/89, HR 92, O2 sat 95% RA, Afebrile. WBC 16.6. Chemistry unremarkable except for Na 126. INR 1.1. CXR with patchy bilateral airspace consolidation. Hip/Pelvis X- ray nondisplaced right pubic bone fracture, intact right hip. CT L-spine intact , nondisplaced acute fracture of left side of sacrum. Elbow Fracture intact right elbow. Pelvis CT minimally displaced fractures of right superior and inferior pubic rami, nondisplaced fracture of left side of sacrum. Ortho consulted by ER physician, non-operative management. S/p Levaquin in ER for PNA. CBC/BMP: 01/05/18 0431 01/05/18 0431 Significant Findings Laboratory Tests Test 01/02/18 17:07 01/03/18 05:02 01/03/18 09:57 01/04/18 08:10 White Blood Count 16.6 TH/MM3 (4.0-11.0) 11.5 TH/MM3 (4.0-11.0) Red Blood Count 3.68 MIL/MM3 (4.00-5.30) 3.95 MIL/MM3 (4.00-5.30) 3.76 MIL/MM3 (4.00-5.30) Hemoglobin 10.6 GM/DL (11.6-15.3) 11.4 GM/DL (11.6-15.3) 11.1 GM/DL (11.6-15.3) Hematocrit 31.9 % (35.0-46.0) 33.9 % (35.0-46.0) 32.6 % (35.0-46.0) Platelet Count 589 TH/MM3 (150-450) 531 TH/MM3 (150-450) 522 TH/MM3 (150-450) Mean Platelet Volume 6.4 FL (7.0-11.0) 6.8 FL (7.0-11.0) 6.7 FL (7.0-11.0) Neutrophils (%) (Auto) 89.2 % (16.0-70.0) 84.4 % (16.0-70.0) 84.0 % (16.0-70.0) Lymphocytes (%) (Auto) 5.6 % (9.0-44.0) 7.2 % (9.0-44.0) Neutrophils # (Auto) 14.8 TH/MM3 (1.8-7.7) 9.3 TH/MM3 (1.8-7.7) 9.7 TH/MM3 (1.8-7.7) Lymphocytes # (Auto) 0.9 TH/MM3 (1.0-4.8) 0.8 TH/MM3 (1.0-4.8) Toxic Granulation 1+ (NORMAL) Platelet Estimate HIGH (NORMAL) Activated Partial Thromboplast Time 30.3 SEC (24.3-30.1) Albumin 3.2 GM/DL (3.4-5.0) 2.9 GM/DL (3.4-5.0) Sodium Level 126 MEQ/L (136-145) 127 MEQ/L (136-145) Chloride Level 92 MEQ/L (98-107) 92 MEQ/L (98-107) Estimat Glomerular Filtration Rate 76 ML/MIN (>89) 66 ML/MIN (>89) Troponin I LESS THAN 0.02 NG/ML Random Glucose 107 MG/DL (74-106) Urine Mucus FEW /lpf (OCC) Test 01/04/18 08:30 01/05/18 04:31 Albumin 2.7 GM/DL (3.4-5.0) 2.6 GM/DL (3.4-5.0) Sodium Level 125 MEQ/L (136-145) 125 MEQ/L (136-145) Chloride Level 89 MEQ/L (98-107) 90 MEQ/L (98-107) Estimat Glomerular Filtration Rate 61 ML/MIN (>89) 46 ML/MIN (>89) Red Blood Count 3.49 MIL/MM3 (4.00-5.30) Hemoglobin 10.4 GM/DL (11.6-15.3) Hematocrit 30.1 % (35.0-46.0) Platelet Count 517 TH/MM3 (150-450) Mean Platelet Volume 6.7 FL (7.0-11.0) Neutrophils (%) (Auto) 79.7 % (16.0-70.0) Monocytes (%) (Auto) 8.8 % (0.0-8.0) Lymphocytes # (Auto) 0.9 TH/MM3 (1.0-4.8) Blood Urea Nitrogen 22 MG/DL (7-18) Creatinine 1.11 MG/DL (0.50-1.00) Random Glucose 108 MG/DL (74-106) Potassium Level 5.2 MEQ/L (3.5-5.1) Imaging Last Impressions Lumbar Spine CT 01/02/181649 Signed Impressions: Service Date/Time: Tuesday, January 02, 2018 18:16 - CONCLUSION: The lumbar spine is intact. Scoliosis and severe degenerative changes are present. There is a nondisplaced acute fracture of the left side of the sacrum. Ousmane Vaughn MD Hip and Pelvis X-Ray 01/02/181649 Signed Impressions: Service Date/Time: Tuesday, January 02, 2018 17:56 - CONCLUSION: Nondisplaced right pubic bone fracture. Intact right hip. Ousmane Vaughn MD Chest X-Ray 01/02/181649 Signed Impressions: Service Date/Time: Tuesday, January 02, 2018 17:59 - CONCLUSION: Patchy bilateral airspace consolidation. No perceptible acute bony abnormality. Ousmane Vaughn MD Pelvis CT 01/02/18 0000 Signed Impressions: Service Date/Time: Tuesday, January 02, 2018 18:40 - CONCLUSION: Minimally displaced fractures of the right superior and inferior pubic rami. The superior pubic ramus fracture is close to the pubic symphysis but not convincingly through it. There is also a nondisplaced fracture of the left side of the sacrum. Ousmane Vaughn MD Elbow X-Ray 01/02/18 0000 Signed Impressions: Service Date/Time: Tuesday, January 02, 2018 18:04 - CONCLUSION: Intact right elbow. Ousmane Vaughn MD PE at Discharge GENERAL: Awake alert and oriented 3 talkative and cooperative, thin appearing female SKIN: Warm and dry. HEAD: Atraumatic. Normocephalic. EYES: Pupils equal and round. No scleral icterus. No injection or drainage. Extraocular muscles intact ENT: No nasal bleeding or discharge. Mucous membranes pink and moist. Tongue is midline NECK: Trachea midline. No JVD. Supple CARDIOVASCULAR: Regular rate and rhythm. S1-S2 no S3-S4 no heave or thrill or rub or gallop RESPIRATORY: No accessory muscle use. Clear to auscultation. Breath sounds equal bilaterally. GASTROINTESTINAL: Abdomen soft, non-tender, nondistended. Hepatic and splenic margins not palpable. MUSCULOSKELETAL: Extremities without clubbing, cyanosis, or edema. No obvious deformities. NEUROLOGICAL: Awake and alert. No obvious cranial nerve deficits. Motor grossly within normal limits. 4 out of 5 muscle strength in the arms and legs. Normal speech.Decreased ROM of right hip due to pain. Pulses intact. PSYCHIATRIC: Appropriate mood and affect; insight and judgment normal. Hospital Course This is an 87-year-old female with a PMH of HTN, Depression and COPD was brought to the ER by EMS secondary to complaints of right hip and right elbow pain after fall. Denies head trauma or LOC. No other injuries reported. Does report some SOB, states recently diagnosed w/ PNA for which she has been on Keflex. Denies fever, chills, cough or chest pain. On arrival, BP 157/89, HR 92, O2 sat 95% RA, Afebrile. WBC 16.6. Chemistry unremarkable except for Na 126. INR 1.1. CXR with patchy bilateral airspace consolidation. Hip/Pelvis X- ray nondisplaced right pubic bone fracture, intact right hip. CT L-spine intact , nondisplaced acute fracture of left side of sacrum. Elbow Fracture intact right elbow. Pelvis CT minimally displaced fractures of right superior and inferior pubic rami, nondisplaced fracture of left side of sacrum. Ortho consulted by ER physician, non-operative management. S/p Levaquin in ER for PNA. 4-15 patient has decreased range of motion to the right lower extremity. We will make sure she is on some Mucinex and some incentive spirometry and duo nebs continue physical therapy and Occupational Therapy in a.m. labs 4-16 AWAIT PT AND OT EVALS MAY NEED SNF VS [facility] RN AND PT AM LABS 4-17 WANTS TO GO TO [place] BUT WILL GO TO SNF IF NOT ABLE TO GO TO [place] JULIO RN AND PT AND FAMILY AND CM NO NEW COMPLAINTS Pt Condition on Discharge: Good Discharge Disposition: Rehab Inpatient Discharge Time: > 30 minutes Discharge Instructions DIET: Follow Instructions for: Heart Healthy Diet Speech Therapy-Diet Recommends: Regular Activities you can perform: Weight Bearing as Amelia Follow up Referrals: Orthopedics - 2 Weeks with Jonas Stephens MD PCP Follow-up - 2 Weeks with Marck Cardenas MD New Medications: Levofloxacin (Levaquin) 750 Mg Tablet 750 MG PO DAILY for Infection for 5 Days, #5 TAB 0 Refills Oxycodone (Oxycodone) 5 Mg Tab 10 MG PO Q4H PRN for PAIN SCALE 6 TO 10, #30 TAB Oxycodone (Oxycodone) 5 Mg Tab 5 MG PO Q4H PRN for PAIN SCALE 3 TO 5, #30 TAB [Albuterol-Ipratropium Neb] () 1 AMPULE NEBU 1 AMPULE NEB Q6HR WHILE AWAKE NEB for Shortness of Breath, #180 [Albuterol-Ipratropium Neb] () 1 AMPULE NEBU 1 AMPULE NEB Q2HR NEB PRN for sob/cough, #180 AMPULE [guaiFENesin ER] () 600 MG TABCR 600 MG PO BID for Cough, #60 TAB Changed Medications: Sennosides-Docusate Sodium (Senna Plus 8.6-50 mg) 1 Tab Tab 2 TAB PO BID for Constipation, #120 TAB (Changed from: DAILY) Continued Medications: Albuterol 18 GM Inh (Ventolin Hfa 18 GM Inh) 90 Mcg/Act Aer 2 PUFF INH Q4-6H PRN for SHORTNESS OF BREATH, #1 INHALER 0 Refills Ascorbic Acid (Ascorbic Acid) 500 Mg Tab 500 MG PO DAILY, TAB Cholecalciferol (Vitamin D) 400 Unit/Ml Drops 400 UNITS PO DAILY, #1 BOTTLE Enalapril (Vasotec) 5 Mg Tab 5 MG PO DAILY, TAB 0 Refills Fluticasone-Salmeterol Inh (Advair Diskus Inh) 100-50 Mcg/Blist Aer 1 PUFF INH BID for Asthma Management, #1 INHALER 0 Refills Rinse mouth after use. Latanoprost Opth Drops (Xalatan Opth Drops) 0.005% Drops 1 DROP EACH EYE HS for Glaucoma, #2.5 ML 0 Refills [place]-3 Fatty Acids (Fish Oil) 1,000 Mg Cap PO DAILY Pravastatin (Pravachol) 40 Mg Tab 40 MG PO DAILY for Cholesterol Management, TAB 0 Refills Sertraline (Zoloft) 50 Mg Tab 50 MG PO DAILY, TAB 0 Refills Austen Diaz DO Jan 05, 2018 11:08
[2018-01-05] MEDS ORDERED: SODI1TAB PO (11:23)
[2018-01-05 11:41] VITALS: BP 119/57; PULSE 94; RESP 16; TEMP 98.2; O2SAT 91
[2018-01-05] MEDS ORDERED: SODIUM CHLORIDE 1 GRAM TAB PO SCH (13:00)
== END 2018-01-05 15:19 | DRG 551 ==
LOC: NEPE 16:34 → NEDA 20:01 → N06A 20:50
PROVIDERS: ADMIT Hospitalist; ATTEND Hospitalist
DX: S32.19XA Other fracture of sacrum, initial encounter for closed fracture (principal); J18.9 Pneumonia, unspecified organism; S32.591A Other specified fracture of right pubis, initial encounter for closed fracture; J44.0 Chronic obstructive pulmonary disease with (acute) lower respiratory infection; W18.30XA Fall on same level, unspecified, initial encounter; S51.011A Laceration without foreign body of right elbow, initial encounter; E86.0 Dehydration; E87.1 Hypo-osmolality and hyponatremia; I10 Essential (primary) hypertension; F32.9 Major depressive disorder, single episode, unspecified; K21.9 Gastro-esophageal reflux disease without esophagitis; H40.9 Unspecified glaucoma; E78.00 Pure hypercholesterolemia, unspecified; Z86.711 Personal history of pulmonary embolism; Z96.611 Presence of right artificial shoulder joint; Z90.2 Acquired absence of lung [part of]
CPT/HCPCS: 71045; 72131; 72192; 73080; 73502; 80053; 81001; 82550; 82552; 83036; 83690; 83735; 84100; 84439; 84443; 84484; 85025; 85610; 85730; 93005; 94150; 94640; 94664; 96365; 96375; J1170; J1644; J1885; J1956; J2405